=== PATIENT | female | born 1945 | race Caucasian/White ===

== ENCOUNTER 2020-11-08 17:14 | Outpatient (CLI) | payer MEDICARE, BC, SELFPAY ==
[2020-11-08 17:46] LABS: Hematocrit 32.5 % (37.0-47.0); Hemoglobin 10.4 g/dL (12.0-15.0); Immature Reticulocyte Fraction 15.5 % (3.0-15.9); Mean Corpuscular Hemoglobin 27.2 pg (26-34); Mean Corpuscular Volume 85.1 fl (80-100); Mean Platelet Volume 8.4 fl (7.4-10.4); Platelet Count Result 259 k/mm3 (150-375); Red Blood Count 3.82 M/mm3 (4.2-5.4); Red Cell Distribution Width 14.6 % (11.5-14.5); Reticulocyte Hemoglobin Conten 28.4 pg (28.2-35.7); Reticulocyte Percent 1.14 % (0.7-4.3); Reticulocytes Absolute 0.04 B/L (32.2-175.7); White Blood Count 5.1 K/mm3 (4.5-10.0)
[2020-11-08 20:25] LABS: Iron 25 ug/dL (37-170)
[2020-11-08 20:36] LABS: Percent Iron Saturation 6 % (20-50)
[2020-11-08 21:02] LABS: Ferritin 6.23 ng/mL (11.1-264)
[2020-11-08 21:43] LABS: Folic Acid > 20.0 ng/mL (2.76->20)
== END 2020-11-08 17:15 | disposition home or self-care (01) ==
PROVIDERS: Visit Provider Orthopaedic Surgery
DX: D64.9 Anemia, unspecified (principal)
CPT/HCPCS: 36415; 82607; 82728; 82746; 83540; 83550; 85027; 85046

== ENCOUNTER → 2022-11-14 12:43 | Outpatient (CLI) | payer MEDICARE, BC, SELFPAY ==
--- NOTE | ~2022-11-14 | US_ITS ---
EXAMINATION: US transvaginal DATE: 11/14/2022 13:21 INDICATION: Postmenopausal bleeding TECHNIQUE: Multiple endovaginal sonographic images of the pelvis were obtained. COMPARISON: None. FINDINGS: The uterus measures 4.8 x 2.4 x 3.6 cm. The endometrial complex measures 5 mm. There is a t race volume of fluid in the endometrial canal of unclear significance or etiology. The right ovary is not visualized however no right adnexal abnormality is seen. The left ovary measures 2.4 x 1.0 x 1.9 cm. There is a 1.3 x 1.0 cm cyst of the left ovary. There is normal vascular flow in the left ovary. There is no free fluid in the pelvis. IMPRESSION: 1. No sonographic correlate for the patient's symptoms. Trace volume of fluid in the endometrial jacky l of unclear significance or etiology. 2. 1.3 cm cyst of the left ovary. Follow-up ultrasound in 12 months is recommended. Reviewed, dictated and finalized at location F. IMPRESSION: 1. No sonographic correlate for the patient's symptoms. Trace volume of fluid i n the endometrial canal of unclear significance or etiology. 2. 1.3 cm cyst of the left ovary. Follow-up ultrasound in 12 months is recommen ded.
== END ==
PROVIDERS: PCP Physician Assistant; Visit Provider Nurse Practitioner
DX: N95.0 Postmenopausal bleeding (principal); N83.202 Unspecified ovarian cyst, left side
CPT/HCPCS: 76830

== ENCOUNTER 2023-01-29 00:35 | Day surgery (SDC) | payer MEDICARE, BC, SELFPAY ==
[2023-01-17 09:41] VITALS: BMI 33.1
--- NOTE | 2023-01-17 09:56 | PC.NURSE ---
Report to the Outpatient Waiting Room, entrance under the green pavilion located off [facility], at time _6:00AM on date __01/29/23 . Planned Procedure Time: ___7:30AM . Time changes happen often and if your time is changed the preop area will call you the afternoon before. - You and your visitor will be asked to self-screen and do not enter if you have any COVID symptoms. - A mask is optional within the hospital at this time. Patients may have clear liquids (water, carbonated beverages, clear teas, apple juice) until 3 hours prior to surgery with a maximum of 20 ounces. - No food from midnight until time of surgery Take the following medications with a SIP of water the morning of surgery: ___LEVOTHYROXINE, METOPROLOL DO NOT STOP ANY OF YOUR OTHER PRESCRIPTION MEDICATIONS PRIOR TO SURGERY ?EXCEPT THE FOLLOWING Medications to discontinue per physician ___HOLD ELIQUIS PER DR BUSTILLOS. HOLD ALL VITAMINS/SUPPLEMENTS 3 DAYS PRE-OP PER ANESTHESIA- LAST DOSE- 01/25/23 Please no make-up, nail serbian, hairspray, perfume, deodorant, or body powder the day of surgery. No jewelry (including any body piercings) or valuables the day of surgery, leave them at home. Please take a shower or bath the night before, or the morning of, surgery with an antibacterial soap. Wear comfortable, loose fitting clothing. Children are encouraged to wear pajamas. - Jewelry must be removed prior to entering the operating room. Rings and piercings that are not removed may be cut off. - The hospital will not accept responsibility for valuables. - Please leave all valuables, including medications, at home the day of surgery. If you are going home after surgery, a licensed driver lifter of sanitation truck must drive you home. - NO public transportation without another adult if you receive anesthesia. - We recommend that an adult stay with you for 24 hours following discharge. - We also recommend that you do not drive, make important decision, drink alcoholic beverages, or take any drugs that were not prescribed by your health care provider for at least 24 hours after your discharge time. Follow any additional instructions given to you from your surgeon. If you or anyone in your household have experienced Covid symptoms in the past week, please notify your surgeon or the nurse liaison at the phone number below for possible testing. Telephone instructions given to __PATIENT and asked if any additional questions and then verbalized understanding. Patient advised to call surgeon office or pre surgery nurse liaison [phone] if any additional questions.
[2023-01-29 06:29] VITALS: BP 140/76; PULSE 58; RESP 16; TEMP 36.2; O2SAT 100
[2023-01-29] MEDS: ACETAMINOPHEN 500 MG TABLET 1000 MG PO (06:44)
[2023-01-29] MEDS: LACTATED RINGERS 1,000 ML 30 ML IV CONT (06:53)
--- NOTE | 2023-01-29 06:59 | WPDANESEPPF ---
Anes - Initial Pre Proc Eval Procedure: Operation Date: 01/29/23 07:30 Proposed Procedures p Hysteroscopy, Dilation and Curettage - Robyn Brown MD Date/Time: 01/29/23 06:59 Surgeon: Robyn Brown MD Pre Op Diagnosis: post menopausal bleeding Patient Data Age: 77 Gender: F Height: 1.7 m Weight: 95.8 kg Last Vital Signs Temp 36.2 C L 01/29/23 06:29 Pulse 58 L 01/29/23 06:29 Resp 16 01/29/23 06:29 BP 140/76 01/29/23 06:29 Pulse Ox 100 01/29/23 06:29 O2 Del Method Room Air 01/29/23 06:29 Allergies Allergy/AdvReac Type Severity Reaction Status Date / Time SUNIL Inhibitors AdvReac Cough Verified 01/29/23 06:38 morphine AdvReac REFUSING, Verified 01/29/23 06:38 MOTHER- N/V Amcxgum-URA-AyM Reductase AdvReac Muscle Pain Verified 01/29/23 06:38 Inhibitor Home Medications Medication Instructions Recorded Confirmed Type alendronate 70 mg tablet 70 mg PO WEEKLY 01/17/23 01/17/23 History apixaban 5 mg tablet (Eliquis) 5 mg PO BID 01/17/23 01/29/23 History clotrimazole-betamethasone 1 1 applic topical BID PRN Itching 01/17/23 01/29/23 History %-0.05 % topical cream estradiol 10 mcg vaginal tablet 10 mcg vaginal 2XW 01/17/23 01/29/23 History ezetimibe 10 mg tablet 10 mg PO DAILY 01/17/23 01/29/23 History levothyroxine 150 mcg tablet 150 mcg PO QAM 01/17/23 01/29/23 History metoprolol tartrate 25 mg tablet 25 mg PO BID 01/17/23 01/29/23 History omega-3 acid ethyl esters 1 gram 2 cap PO BID 01/17/23 01/29/23 History capsule Patient hx anesthesia problems: none Family hx anesthesia problems: none Results Review: All pre-operative results and documents have been reviewed as part of the pre-operative evaluation. [facility] Past Medical History Medical History (Updated 01/29/23 @ 06:59 by Laron Oconnell MD) AAA (abdominal aortic aneurysm) Atrial fib/flutter, transient HTN (hypertension) Hyperlipidemia Surgical History Surgical History (Updated 01/29/23 @ 07:00 by Laron Oconnell MD) H/O cardiac radiofrequency ablation Social History Social History Smoking packs per day: 0.5 Smoking cigarettes per day: 10.0 Years smoked: 10 Smoking pack-years: 5.00 Smoking status: Former smoker Tobacco type: cigarettes Smoking end date: 02/10/85 Substance use: never Living arrangements: alone Spiritual care concerns: No Anes - Eval Final PreProcedure Day of Procedure 01/29/23 06:59 Patient weight: obese Heart: regular rate and rhythm Lungs: clear to auscultation Airway: Mallampati scale class II Neurological: alert and oriented Last oral intake: >/= 8 hours ASA classification: III Emergent: no Anesthetic plan: proceed Anesthesia type and monitoring: general GIVS and standard monitoring Results Review: All pre-operative results and documents have been reviewed as part of the pre-operative evaluation. Informed Consent: The patient's anesthetic plan and its attendant risks and benefits were discussed with the patient/family/POA. Questions were solicited and answers provided to the satisfaction of the patient/family/POA.
--- NOTE | 2023-01-29 07:21 | WPDHPUPDATE1 ---
History and Physical Update Update Date/Time: 01/29/23 07:21 History and Physical has been reviewed, including an updated exam of the patient. There are NO changes in the patient's condition. Risks, benefits, and alternatives have been discussed and questions answered. Patient agrees to proceed with procedure.
--- NOTE | 2023-01-29 07:21 | PM.HPGS ---
History of Present Illness History of Present Illness Consent: Risks, benefits, and alternatives have been discussed and questions answered. Patient agrees to proceed with procedure. Chief complaint: post menopausal bleeding Narrative: Pallavi Baird is a 77 year old female with several episodes of postmenopausal bleeding. Patient states she has had 3 episodes of bleeding since being seen. Pelvic ultrasound reveals the endometrium to be slightly thickened with a slight amount of fluid in the endometrial canal was recommended to proceed with D&C hysteroscopy. She does use a pessary however the vaginal wall appears normal without evidence abrasion or ulceration. Risk of infection, bleeding, perforation, and possible pathology is reviewed. Review of Systems Review of Systems: not repeated day of surgery; patient states no changes in status PMFSH Past Medical History Medical History (Updated 01/29/23 @ 07:27 by Robyn Brown MD) AAA (abdominal aortic aneurysm) Atrial fib/flutter, transient History of bladder cancer 2004 HTN (hypertension) Hyperlipidemia Hypothyroid (normal spontaneous vaginal delivery) x2 with hemorrhage each time Surgical History Surgical History (Updated 01/29/23 @ 07:25 by Robyn Brown MD) H/O cardiac radiofrequency ablation History of knee surgery bilateral arthroscope 2009 History of laparoscopic adjustable gastric banding 2007 Status post cystoscopy original in 2004 with ongoing surveillance Status post tubal ligation Social History Social History Smoking packs per day: 0.5 Smoking cigarettes per day: 10.0 Years smoked: 10 Smoking pack-years: 5.00 Smoking status: Former smoker Tobacco type: cigarettes Smoking end date: 02/10/85 Substance use: never Living arrangements: alone Spiritual care concerns: No Meds Home Medications and Allergies Home Medications Medication Instructions Recorded Confirmed Type alendronate 70 mg tablet 70 mg PO WEEKLY 01/17/23 01/17/23 History apixaban 5 mg tablet (Eliquis) 5 mg PO BID 01/17/23 01/29/23 History clotrimazole-betamethasone 1 1 applic topical BID PRN Itching 01/17/23 01/29/23 History %-0.05 % topical cream estradiol 10 mcg vaginal tablet 10 mcg vaginal 2XW 01/17/23 01/29/23 History ezetimibe 10 mg tablet 10 mg PO DAILY 01/17/23 01/29/23 History levothyroxine 150 mcg tablet 150 mcg PO QAM 01/17/23 01/29/23 History metoprolol tartrate 25 mg tablet 25 mg PO BID 01/17/23 01/29/23 History omega-3 acid ethyl esters 1 gram 2 cap PO BID 01/17/23 01/29/23 History capsule Allergies Allergy/AdvReac Type Severity Reaction Status Date / Time SUNIL Inhibitors AdvReac Cough Verified 01/29/23 06:38 morphine AdvReac REFUSING, Verified 01/29/23 06:38 MOTHER- N/V Rctjiuo-EHT-NuX Reductase AdvReac Muscle Pain Verified 01/29/23 06:38 Inhibitor Vital Signs Vital Signs - 24 hr 01/29/23 06:29 Temperature 97.2 F L Pulse Rate 58 L Respiratory Rate 16 Blood Pressure 140/76 Pulse Oximetry 100 Oxygen Delivery Room Air Exam Const: General: healthy appearing and alert Orientation/consciousness: patient oriented x3 Resp: Effort & Inspection: normal respiratory effort GI: GI Palp: Yes Soft to palpation, No Tenderness to palpation present (GI) and No Palpable mass present : External Female Exam: normal external appearance Speculum Exam - Vagina: normal vaginal discharge and other ( Cystocele and rectocele) Speculum Exam - Cervix: normal appearance of the cervix Bimanual exam- vagina & uterus: uterine size normal and consistency normal Bimanual Exam- Adnexa, other: normal adnexae and No adnexal tenderness Neuro: General: patient oriented x3 Assessment and Plan Assessment and plan (1) Post-menopausal bleeding: Code(s): N95.0 - Postmenopausal bleeding Status: Acute Assessment and
[2023-01-29] MEDS: LIDOCAINE HCL 1% LOCAL INJ 10 ML VIAL INFILTRATE (07:33)
--- NOTE | 2023-01-29 07:57 | W.PM.PROC2 ---
Procedure Note - Detailed Date of Procedure 01/29/23 Pre-op Diagnosis post menopausal bleeding Post-op Diagnosis Same Procedure Performed D&C hysteroscopy Surgeon Robyn Brown MD Anesthesia MAC and Local Findings cystocele with rectocele; internal cervical stenosis; very atrophic endometrium Description of Procedure The patient is taken to the operating room and placed under anesthesia in the dorsal lithotomy position. She was prepped and draped usual sterile fashion. Patient's pessary is removed and cleaned and set aside. [place] speculum was placed in the vagina and the cervix grasped on the anterior lip with a tenaculum. The cervix is injected in each quadrant with 1% lidocaine. The sound is used and internal stenosis is noted at approximately 2cm. The os Finders are used and are unable to pass the stenosis. The camera is used in an attempt to hydro dissect and the os is visible but very scarred. The os Finders are then used and able to pass the internal stenosis. The uterus sounds to 7cm. The hysteroscope was then used to evaluate the endometrium with the above-stated findings. The hysteroscope was removed and the sharp curette used to curette the endometrium. Minimal if any material was obtained consistent with the severe atrophy of the endometrium. All instruments are removed. The pessary is replaced. The patient is awakened from anesthesia and taken to recovery in stable condition. Sponge, needle, and instrument counts are correct per the OR staff. Estimated Blood Loss 5 Drains No Packing No Pathology Yes ( Endometrial curettings) Complications No immediate complications Condition Stable Disposition PACU
[2023-01-29 08:00] VITALS: BP 95/55; PULSE 52; RESP 16; O2SAT 97
[2023-01-29 08:30] VITALS: BP 118/71; PULSE 53; RESP 16; O2SAT 100
[2023-01-29 08:50] VITALS: BP 125/65; PULSE 51; RESP 14
== END 2023-01-29 08:58 | disposition home or self-care (01) ==
PROVIDERS: PCP Physician Assistant; Visit Provider Obstetrics & Gynecology Gynecology
PROC: 0U5B8ZZ Destruction of Endometrium, Via Natural or Artificial Opening Endoscopic (ICD-10-PCS; CPT 58563; principal; 2023-01-29 07:30)
DX: N95.0 Postmenopausal bleeding (principal); N81.10 Cystocele, unspecified; N81.6 Rectocele; I48.0 Paroxysmal atrial fibrillation; I10 Essential (primary) hypertension; E78.5 Hyperlipidemia, unspecified; I71.40 Abdominal aortic aneurysm, without rupture, unspecified; Z87.891 Personal history of nicotine dependence; E66.9 Obesity, unspecified; Z68.33 Body mass index [BMI] 33.0-33.9, adult; Z79.01 Long term (current) use of anticoagulants
CPT/HCPCS: 58558; 88305; A9270; J2704; J3010; J7120

== ENCOUNTER 2025-01-13 09:34 | Outpatient (CLI) | payer MEDICARE, BC, SELFPAY ==
--- OUTSIDE RECORDS SUMMARY | 2025-01-13 09:53 | XMS_ITS ---
Author Organization [facility] [address] [place] [address] Care Team Providers [facility] [place] Worker Name Role Phone Edward Elkins MD Unavailable [phone] Elva Rush MD Unavailable Zeenat Emanuel Primary Care Provider [phone] Robyn Brown MD Unavailable [phone] Active Problems Problem Noted Date Diagnosed Date Elevated glucose 11/05/2023 Overview (11/05/2023): Diet controlled, check labs Assessment & Plan (11/05/2024 8:16 AM CDT): Diet controlled. A1c 5.9 Abdominal aortic aneurysm (AAA) without rupture 05/19/2021 Assessment & Plan (11/05/2024 8:16 AM CDT): Monitor by Cardiology Assessment & Plan (11/05/2023 8:01 AM CDT): Stable, followed by Cardiology Assessment & Plan (10/28/2021 8:40 AM CDT): Stable, followed by vascular Osteoarthritis of hip 01/31/2021 Assessment & Plan (01/07/2025 9:38 AM CDT): Anticipating hip replacement surgery Assessment & Plan (11/05/2023 8:01 AM CDT): Stable, followed by Ortho Assessment & Plan (10/28/2021 8:41 AM CDT): Stable, continue exercise Anemia 11/11/2020 Assessment & Plan (11/05/2023 8:01 AM CDT): Stable, check CBC Assessment & Plan (10/28/2021 8:40 AM CDT): Resolved. Will monitor with labs. Patient has stop iron supplement Statin intolerance 10/27/2020 Assessment & Plan (11/05/2024 8:16 AM CDT): Unchanged Obstructive sleep apnea derrick bobby with continuous positive airway pressure (CPAP) 10/07/2020 Assessment & Plan (11/05/2024 8:16 AM CDT): Stable, continue CPAP Assessment & Plan (02/12/2024 1:22 PM CDT): Patient continue to wear her CPAP at 10 cm water pressure while sleeping. Her DME is [employer]. Assessment & Plan (11/08/2023 2:24 PM CDT): Data continued symptoms, the patient will continue CPAP at 10 cm water pressure. I have ordered the patient a new CPAP set at 10 cm water pressure with heated humidity and a full set of supplies. The patient and I discussed the possible need for recertification was a sleep study. The patient will decide at the time if that is something she would like to proceed with. She says she would prefer an in-home. DME [employer] Assessment & Plan (11/05/2023 8:01 AM CDT): Jayesh, followed by Pulmonary Assessment & Plan (11/02/2022 1:44 PM CDT): Patient will continue with CPAP therapy at 10 cm water pressure. She will call into the office if she would like a new CPAP machine ordered. DME [employer]. I also showed the patient oral appliances that she may use while on vacation. Assessment & Plan (10/28/2021 8:41 AM CDT): Stable, continue CPAP, followed by Pulmonary Assessment & Plan (10/27/2021 2:24 PM CDT): Due to the slightly elevated AHI I have increased the pressure to 10 cm water pressure. Patient denied need for supplies. DME [employer]. Patient is benefitting from CPAP Assessment & Plan (10/27/2020 8:34 AM CDT): Stable continue CPAP Assessment & Plan (10/07/2020 1:26 PM HAND STITCHER): The patient will continue with CPAP usage at 8 cm water pressure to treat obstructive sleep apnea. The patient did receive an order for all new supplies. The DME company is [facility]. The patient is benefitting from CPAP therapy. Dyslipidemia 04/26/2020 Assessment & Plan (11/05/2024 8:16 AM CDT): Uncontrolled. Patient has a statin intolerance. Patient is going to discontinue Zetia. We are going to look into the coverage of Repatha Assessment & Plan (11/05/2023 8:01 AM CDT): Followed by Cardiology, patient on Zetia. Statin intolerance Assessment & Plan (10/28/2021 8:41 AM CDT): Uncontrolled. Statin intolerance. Patient will continue Zetia. Followed by Cardiology Assessment & Plan (10/27/2020 8:34 AM CDT): Uncontrolled. Patient is intolerant to statins. Continue Zetia and Lovaza. Continue exercise Former tobacco use 12/25/2019 Assessment & Plan (10/27/2020 8:36 AM CDT): Discussed with patient screening guidelines. Patient will consider testing Pessary maintenance 10/24/2019 Assessment & Plan (11/05/2023 8:00 AM CDT): Followed by gynecology Assessment & Plan (10/28/2021 8:42 AM CDT): Followed by gynecology Assessment & Plan (10/27/2020 8:35 AM CDT): Followed by gynecology Assessment & Plan (10/24/2019 10:36 AM CDT): Followed by [employer] Class 2 severe obesity due t o excess calories with serious comorbidity and body mass index (BMI) of 36.0 to 36.9 in adult 10/24/2019 Assessment & Plan (01/07/2025 9:38 AM CDT): Educated patient on healthy diet/exercise plan. Exercise 150min-300min per week of moderate intensity. Diet: good, healthy protein (eggs, nuts, peanut butter, chicken, fish, turkey, less pork/beef), lots of vegetables, less carbohydrates and less sugar. Assessment & Plan (11/05/2024 8:16 AM CDT): Educated patient on healthy diet/exercise plan. Exercise 150min-300min per week of moderate intensity. Diet: good, healthy protein (eggs, nuts, peanut butter, chicken, fish, turkey, less pork/beef), lots of vegetables, less carbohydrates and less sugar. Assessment & Plan (11/05/2023 8:00 AM CDT): Educated patient on healthy diet/exercise plan. Exercise 150min-300min per week of moderate intensity. Diet: good, healthy protein (eggs, nuts, peanut butter, chicken, fish, turkey, less pork/beef), lots of vegetables, less carbohydrates and less sugar. Assessment & Plan (10/28/2021 8:41 AM CDT): Uncontrolled. Goal of BMI is less than 30 Educated patient on healthy diet/exercise plan. Exercise 150min-300min per week of moderate intensity. Diet: good, healthy protein (eggs, nuts, peanut butter, chicken, fish, turkey, less pork/beef), lots of vegetables, less carbohydrates and less sugar. Assessment & Plan (10/27/2020 8:34 AM CDT): Educated patient on healthy diet/exercise plan. Exercise 150min-300min per week of moderate intensity. Diet: good, healthy protein (eggs, nuts, peanut butter, chicken, fish, turkey, less pork/beef), lots of vegetables, less carbohydrates and less sugar. Assessment & Plan (04/26/2020 8:59 AM CDT): BMI is okay. Normal range is 18-25 and overweight is 25-30. Continue to work on eating healthy and exercising at least 150 minutes per week. Assessment & Plan (10/24/2019 10:35 AM CDT): Educated patient on healthy diet/exercise plan. Exercise 150min-300min per week of moderate intensity. Diet: good, healthy protein (eggs, nuts, peanut butter, chicken, fish, turkey, less pork/beef), lots of vegetables, less carbohydrates and less sugar. Medicare annual wellness visit, subsequent 10/06 Overview (11/21/2024): PMH:/MWV: 11/05/24 Last pap:09/2012 Last mammogram:11/2024 Last dexa: upcoming 09/2025 Last colonoscopy/cologuard: 08/27/2020 repeat in 2025 Last tdap: 01/23/2020 Last Prevnar/pneumovax: 10/2023 prevnar 20 Last Shingrix:completed Last eye exam: 10/2021 Assessment & Plan (11/05/2024 8:16 AM CDT): PMH:/MWV: 11/05/24 Last pap:09/2012 Last mammogram:10/09/23 Last dexa: upcoming 09/2025 Last colonoscopy/cologuard: 08/27/2020 repeat in 2025 Last tdap: 01/23/2020 Last Prevnar/pneumovax: 10/2023 prevnar 20 Last Shingrix:completed Last eye exam: 10/2021 Assessment & Plan (11/05/2023 7:41 AM CDT): PMH:/MWV: 11/05/23 Last pap:09/2012 Last mammogram:10/09/23 Last dexa: 06/2023 Last colonoscopy/cologuard: 08/27/2020 repeat in 2025 Last tdap: 01/23/2020 Last Prevnar/pneumovax: (13) 10/23/14 (23) 08/20/2009 Last Shingrix:completed Last eye exam: 10/2021 Assessment & Plan (10/28/2021 8:11 AM CDT): PMH:/MWV: 10/28/21 Last pap:09/2012 Last mammogram:10/2017, 11/20/2018, 12/2019, 04/2021 Last dexa:10/2017, 01/2020, 05/2021 Last colonoscopy/cologuard: 08/27/2020 repeat in 2025 Last tdap: 01/21/2009, 01/23/2020 Last Prevnar/pneumovax: (13) 10/23/14 (23) 08/20/2009 Last Shingrix:completed Last eye exam:09/2018, 09/2019, 10/2021 Assessment & Plan (10/27/2020 7:52 AM CDT): PMH:/MWV: 10/25/2020 Last pap:09/2012 Last mammogram:10/2017, 11/20/2018, 12/2019 Last dexa:10/2017, 01/2020, Last colonoscopy/cologuard: 08/27/2020 repeat in 2025 Last tdap: 01/21/2009, 01/23/2020 Last Prevnar/pneumovax: (13) 10/23/14 (23) 08/20/2009 Last Shingrix:completed Last eye exam:09/2018, 09/2019 Assessment & Plan (10/24/2019 8:15 AM CDT): PMH:/MWV: 10/24/2019 Last pap:09/2012 Last mammogram:10/2017, 11/20/2018 (scheduled November) Last dexa:10/2017 (scheduled November) Last colonoscopy/cologuard: 2019 attempted, barium was negative, repeat in 1 year. Last tdap: 01/21/2009, get at pharmacy Last Prevnar/pneumovax: (13) 10/23/14 (23) 08/20/2009 Last Shingrix:completed Last eye exam:09/2018, 09/2019 Hx of bladder cancer 10/16/2018 Assessment & Plan (11/05/2023 8:00 AM CDT): Patient reports recent workup from Urology was negative Assessment & Plan (10/28/2021 8:41 AM CDT): Followed by urology yearly Assessment & Plan (10/27/2020 8:34 AM CDT): Stable, no issues Osteoarthritis of shoulder 05/29/2017 Assessment & Plan (11/05/2023 7:59 AM CDT): Stable, followed by specialist Assessment & Plan (10/28/2021 8:41 AM CDT): Stable, continue exercise Assessment & Plan (10/27/2020 8:34 AM CDT): Stable, taking Mobic Assessment & Plan (10/24/2019 10:35 AM CDT): stable Benign essential hypertension 11/06/2016 Assessment & Plan (11/05/2024 8:16 AM CDT): Chronic, stable, continue metoprolol Assessment & Plan (11/05/2023 7:59 AM CDT): Stable, continue current meds Assessment & Plan (10/28/2021 8:40 AM CDT): Stable, continue metoprolol Assessment & Plan (10/27/2020 8:34 AM CDT): Stable continue meds Assessment & Plan (10/24/2019 8:44 AM CDT): Stable on meds Vitamin D deficiency 10/18/2016 Assessment & Plan (11/05/2023 8:00 AM CDT): Stable, continue vitamins, order labs Assessment & Plan (10/28/2021 8:42 AM CDT): Stable, continue vitamin-D Assessment & Plan (10/27/2020 8:35 AM CDT): Stable, continue vitamin-D, check labs Assessment & Plan (10/24/2019 10:36 AM CDT): Stable, continue vit d Age related osteoporosis 10/25/2015 Overview (10/28/2021): Fosamax in past. [facility]. Assessment & Plan (11/05/2024 8:16 AM CDT): Chronic, stable, continue Fosamax. DEXA due next year Assessment & Plan (11/05/2023 7:59 AM CDT): Stable, patient taking Fosamax Assessment & Plan (10/28/2021 8:40 AM CDT): Stable, followed by [facility]. Patient will continue calcium, vitamin- D, and exercise Assessment & Plan (10/27/2020 8:33 AM CDT): Followed by [facility]. Patient is taking calcium and vitamin-D. Patient has a follow-up with them in December Assessment & Plan (10/24/2019 8:41 AM CDT): Continue meds, Pt has dexa scheduled in November Other specified hypothyroidism 10/25/2015 Assessment & Plan (11/05/2024 8:16 AM CDT): Uncontrolled. Synthroid was just increased to 137 mcg. Patient will repeat labs in a few weeks. Assessment & Plan (11/05/2023 8:00 AM CDT): Stable, continue current meds . order labs Assessment & Plan (10/28/2021 8:41 AM CDT): Stable, continue Synthroid Assessment & Plan (10/27/2020 8:34 AM CDT): Stable, check labs, continue meds Assessment & Plan (10/24/2019 10:36 AM CDT): Stable, labs due 04/2020 Paroxysmal atrial fibrillation 10/25/2015 Overview (10/27/2021): Last Assessment & Plan: Stable, followed by Cardiology, continue aspirin daily Assessment & Plan (01/07/2025 9:38 AM CDT): Chronic, stable, medically cleared for surgery per Cardiology Assessment & Plan (11/05/2024 8:16 AM CDT): Chronic, stable, patient will continue Eliquis Assessment & Plan (11/05/2023 8:01 AM CDT): Post ablation, patient doing well, followed by Cardiology Assessment & Plan (10/28/2021 8:41 AM CDT): Stable, followed by Cardiology patient will continue aspirin daily Current Treatment and Therapy Plans No current plan information found. Past Treatment and Therapy Plans No past plan information found. Lifetime Dose Tracking * Chemical Lifetime Dose Automatic Entry Manual Entr y Fluoro Time 3.7 minutes 3.7 minutes 0 minutes Air kerma at the reference point (Ka,r) 180.2 mGy 1 80.2 mGy 0 mGy Resolved Problems Problem Noted Date Diagnosed Date Resolved Date Elevated TSH 09/02/2021 10/28/2021 Hypertension 11/11/2020 10/28/2021 CPAP (continuous positive ai rway pressure) dependence 10/27/2020 10/28/2021 Abnormal ECG 12/25/2019 10/28/2021 Impaired hearing 10/15/2017 10/24/2019 Senile angioma 03/28/2017 10/06/2019 Atrial fibrillation 10/25/2015 10/29/19 22 Assessment & Plan (10/27/2020 8:34 AM CDT): Stable, followed by Cardiology, continue aspirin daily Assessment & Plan (10/24/2019 10:36 AM CDT): Stable, followed by cardiology Regular today, not on blood thinners except asa Malignant neoplasm of urinary bladder 10/25/2015 10/06/2019 Mixed hyperlipidemia 10/25/2015 021 Assessment & Plan (10/24/2019 10:35 AM CDT): Followed by cardiology Sebaceous gland hyperplasia 12/18/2014 10/06/2019 Senile lentigo 12/18/2014 10/06/2019 Benign neoplasm of skin 11/27/201309/14 Lentigo 11/27/2013 10/06/2019 Arthralgia of shoulder 08/29/201310/06 Capillary hemangioma of skin 11/27/2012 10/06/2019 Seborrheic keratoses 03/06/2011 020
--- OUTSIDE RECORDS SUMMARY | 2025-01-13 09:53 | XMS_ITS | Referral Summary ---
Author Organization [facility] 2 Address [address] [facility] [place] [address] Care Team Providers Care Diet Kitchen Cook Name Role Phone Edward Elkins MD Unavailable [phone] Elva Rush MD Unavailable Zeenat Emanuel Primary Care Provider [phone] Robyn Brown MD Unavailable [phone] Encounters Date Type Department Care Team Description 01/12/[address] [address] Zeenat Emanuel PA Medical Records Request 01/07/2025 8:30 AM CDT Office Visit [address] [phone] Zeenat Emanuel PA Pre-operative clearance (Primary Dx); Screening mammogram for breast cancer; Primary osteoarthritis of both hips; Paroxysmal atrial fibrillation (HCC); Class 2 severe obesity due to excess calories with serious comorbidity and body mass index (BMI) of 36.0 to 36.9 in adult (HCC) 12/25/[address] [address] Zeenat Emanuel PA Surgery Clearance Form 12/08/2024 Results Follow-Up [address] [address] Zeenat Emanuel PA Thyroid Function [place] 12/08/2024 9:25 AM CDT Lab [facility] [address] [place] [id number] Other specified hypothyroidism 11/21/2024 Results Follow-Up [address] [address] Zeenat Emanuel PA Screening Mammogram Bilateral W Armen 11/20/2024 3:25 PM CDT - 11/20/2024 11:59 PM CDT Hospital Encounter [facility] Medical Office Bl [address] [place] [address] Screening mammogram, encounter for Discharge Disposition: Discharge to home or self care 11/05/2024 7:30 AM CDT Office Visit [address] [phone] Zeenat Emanuel PA Medicare annual wellness visit, subsequent (Primary Dx); Paroxysmal atrial fibrillation (HCC); Class 2 severe obesity due to excess calories with serious comorbidity and body mass index (BMI) of 35.0 to 35.9 in adult (HCC); Benign essential hypertension; Age-related osteoporosis without current pathological fracture; Other specified hypothyroidism; Dyslipidemia; Elevated glucose; Obstructive sleep apnea treated with continuous positive airway pressure (CPAP); Statin intolerance; Abdominal aortic aneurysm (AAA) without rupture, unspecified part 11/03/2024 1:00 PM CDT Office Visit [facility]ally In[facility] [address] [place] [address] Gaston Bonilla NP Bariatric surgery status (Primary Dx); Encounter for fitting and adjustment of gastric lap band; BMI 34.0-34.9,adult 10/27/2024 Telephone [place] [address] [place] [address] Zeenat Emanuel PA recent visit to Ortho 10/21/2024 Orders Only [facility] Neurosurgery [address] [facility] Medical Office Building [address] [place] [address] Brian Shannon PA Closed fracture of hip, unspecified laterality, initial encounter (HCC) (Primary Dx) 10/14/2024 Letter (Out) [facility] [address] [address] 10/13/2024 Letter (Out) [address] [address] from Last 3 Months Allergies Active Allergy Reactions Criticality Noted Date Comments Prosper Inhibitors Other (See comments) Reaction: SEE ALLERGY COMMENTS, Atorvastatin Muscle pain Medium 01/21/2016 Morphine Other (See comments) Low 07/09/2023 Niacin Redness Low 10/18/2004 Pravastatin Muscle pain Medium 01/21/2016 Rosuvastatin Muscle pain Medium 01/21/2016 Wndasgm-Pvm-Bkb Reductase Inhibitors Muscle pain Medium 11/05/2023 Fluocinolone Unknown Medications metoprolol (LOPRESSOR) 25 mg tablet Take 1 tablet (25 mg total) by mouth daily 05/03/20 19 Active omega-3 fatty acids (LOVAZA) 1 gram capsule 2 (two) times a day 2 tablets Active lutein 10 mg tablet Rx: Lutein Active estradioL (VAGIFEM) 10 mcg tablet 2 (two) times a week Active cholecalciferol (VITAMIN D-3) 25 mcg (1,000 unit) tablet Take 1 tablet (1,000 Units total) by mouth every other day weekly Active Eliquis 5 mg tablet 01/21/20 24 Active ferrous sulfate (IRON ORAL) Take 29 mg by mouth Active Lactobacillus acidophilus (PROBIOTIC ORAL) Take by mouth Active ZINC ORAL Take 20 mg by mouth Active MAGNESIUM ORAL Take 250 mg by mouth Active alendronate (FOSAMAX) 70 mg tablet Take 1 tablet (70 mg total) by mouth every 7 days Take in the morning with a full glass of water, on an empty stomach, and do not take anything else by mouth or lie down for the next 30 min. 12 tablet 3 09/08/19 25 026 Active levothyroxine (SYNTHROID) 137 mcg tablet Take 1 tablet (137 mcg total) by mouth retail security professional before breakfast 90 tablet 3 10/10/19 25 026 Active amoxicillin 500 mg tablet/capsule TAKE 4 TABLETS BY MOUTH ONE HOUR PRIOR TO APPOINTMENT 10/07/19 Active metoprolol XL (TOPROL-XL) 25 mg extended release tablet TAKE 1/2 TABLET EVERY EVENING 11/16/19 25 025 Discontinued Active Problems Problem Noted Date Diagnosed Date [...] water pressure while sleeping. Her DME is nola. Assessment & Plan (11/08/2023 2:24 PM CDT): [...] (11/05/2023 8:01 AM CDT): Stable, followed by Pulmonary Assessment & Plan (11/02/2022 [...] CPAP Assessment & Plan (10/07/2020 1:26 PM BLASTER HELPER): The patient will continue with CPAP usage [...] Plan (10/24/2019 10:36 AM CDT): Followed by shipping specialist Class 2 severe obesity due t o [...] Overview (10/28/2021): Fosamax in past. Stopped by [facility]. Assessment & Plan (11/05/2024 8:16 AM CDT): Chronic, stable, continue Fosamax. DEXA due next year Assessment & Plan (11/05/2023 7:59 AM CDT): Stable, patient taking Fosamax Assessment & Plan (10/28/2021 8:40 AM CDT): Jayesh, followed by [facility]. Patient will continue calcium, vitamin- D, and exercise Assessment & Plan (10/27/2020 8:33 AM CDT): Followed by [facility]. Patient is taking calcium and vitamin-D. Patient [...] by Cardiology patient will continue aspirin daily Resolved Problems Problem Noted Date Diagnosed Date [...] skin 11/27/2012 10/06/2019 Seborrheic keratoses 03/06/2011 020 Immunizations Immunization Administration Dates Next Due DTP 09/13/2013 Hep A, Adult 09/13/1999 Hep A, Pediatric 04/13/2014 Influenza, Quad, Adjuvantate d, Intramuscular 04/09/2023,05/02/2021 Influenza, Quadrivalent, Hig h Dose, Preservative Free, Intrr 04/18/2022 Influenza, Quadrivalent, Spl it, Preservative Free, Intramuscular 05/13/2021,05/02/2021 Influenza, Trivalent, High D ose, Split, Preservative Free, Intramuscular 04/17/2024,04/26/2020,05/05/2019,05/03,05/01/2017,05/13/2015,04/13/2014 Influenza, Unspecified 05/13/2022,2020,05/07/2020,05/05,05/03/2018,05/01/2017,05/13/2015 ,04/13/2014,05/06/2011,06/03/2010,12/2008 Moderna SARS-CoV-2 Monovalen t Vaccination (12+ YRS) 10/06/2020,09/09/2020 Pneumococcal Conjugate PCV 13 10/23/2014 Pneumococcal Conjugate Pcv20 11/05/2023 Pneumococcal Conjugate, Unspecified 10/11/2014,1 08/13/2013 Pneumococcal Polysaccharide PPV23 06/20/2010,03/2010 Pneumococcal, Unspecified 10/11/2014 TD Preservative Free 01/21/2009 Td, adsorbed 01/28/1999 Tdap 01/23/2020,06/09/2009,01/21/2009 Yellow Fever 09/13/2013 ZOSTER LIVE 02/10/2009 ZOSTER Recombinant 07/18/2018,07/18/2018, 018 Social History Tobacco Use Types Packs/Day Years Used Date Smoking Tobacco: Former Cigarettes 0.8 25 1 970 - 1994 Smokeless Tobacco: Never Tobacco Cessation:Counseling Given: Not Answered Alcohol Use Standard Drinks/Week Comments Not Currently 0 (1 standard drink = 0.6 oz pur e alcohol) AUDIT-C Answer Date Recorded Q1: How often do you have a drink containing alcohol? Never 01/07/2025 Q2: How many drinks containi ng alcohol do you have on a typical day when you are drinking? Patient does not drink Q3: How often do you have si x or more drinks on one occasion? Never 01/07/2025 PHQ-2 Answer Date Recorded PHQ-2 Total Score (If total score is 3 or more points, staff should administer the PHQ-9) 0 01/07/2025 PHQ-9 Answer Date Recorded PHQ-9 Total Score 0 10/29/2024 Comments No Sex and Gender Information Value Date Recorded Sex Assigned at Not on file Legal Sex Female 7:50 PM BLASTER HELPER Gender Identity Female 04/04/2019 12:49 PM CDT Sexual Orientation Not on file Last Filed Vital Signs Vital Sign Reading Time Taken Comments Blood Pressure 128/70 01/07/2025 8:02 AM CDT Pulse 68 01/07/2025 8:02 AM CDT Temperature 36.5 C (97.7 F) 01/07/2025 8:02 AM CDT Respiratory Rate 16 01/07/2025 8:02 AM CDT Oxygen Saturation 95% 01/07/2025 8:02 AM CDT Inhaled Oxygen Concentration - - Weight 103.5 kg (228 lb 3.2 oz) 01/07/2025 8:02 AM CDT Height 168.9 cm (5' 6.5) 01/07/2025 8 :02 AM CDT Body Mass Index 36.29 01/07/2025 8:02 AM CDT Plan of Treatment Not on file Procedures Procedure Name Priority Date/Time Associated Diagnosis Comments ECG 12-LEAD Routine 01/07/2025 8:30 AM CDT Pre-operative clearance THYROID FUNCTION CASCADE Routine 12/08/2024 9:38 AM CDT Other specified hypothyroidism SCREENING MAMMOGRAM BILATERAL W ARMEN Schedule Routine, Read Routine (OP Routine) 11/20/2024 3:36 PM CDT Screening mammogram, encounter for DEXA TBS AXIAL SKELETON BONE DENSITY 1 OR MORE SITES Schedule Routine, Read Routine (OP Routine) 09/08/2024 12:25 PM BLASTER HELPER Age-related osteoporosis without current pathological fracture HM COLONOSCOPY Routine 08/13/2019 from Last 3 Months or Most Recently Relevant to Health Maintenance Results * ECG 12 lead (01/07/2025 8:30 AM CDT) us Zeenat CALLAHAN ECG ORDERABLES Final Result * Thyroid Function [place] (12/08/2024 9:38 AM CDT) TSH 4.20 0.30 - 4.20 mcIUnit/mL Comment:Testing performed by : [facility], [address] [place] [address]., [id number] Blood 12/08/2024 9:38 AM CDT 12/08/2024 11:59 AM CDT us Zeenat CALLAHAN LAB BLOOD ORDERABLES Final Res ult [facility] [address] [facility] [place] [address] * Screening Mammogram Bilateral W Armen (11/20/2024 3:36 PM CDT) Anatomical Region Laterality Modality Breast Bilateral Mammography Impressions 11/20/2024 3:42 PM CDT BI-RADS ATLAS category (overall): 1 - Negative There is no mammographic evidence of malignancy. A 1 year screening mammogram is recommended. The patient has been or will be contacted. We recommend annual screening mammography for women at average risk of breast cancer beginning at age 40, based on guidelines of the [employer] (ACR Practice Parameter for the Performance of Screening and Diagnostic Mammography) and [place] [employer]. For women with and elevated risk of breast cancer, please refer to the ACR Practice Parameter for specific screening recommendations. The patient will be entered into a reminder system with a target due date of 1 year for her next screening exam. Narrative 11/20/2024 3:42 PM CDT Screening Mammogram Bilateral W Armen: 11/20/24 The study was acquired using full field digital technology and interpreted from soft copy. 2D digital mammographic views, as well as 3D digital tomosynthesis were performed in the CC and MLO projections. This study was resulted using Computer-Aided Detection (CAD). CLINICAL: Screening mammogram, encounter for. No relevant medical history has been documented for this patient. History of breast cancer in Mother, Sister. COMPARISONS: 10/09/2023 Screening Mammogram Bilateral W Armen 08/15/2022 Screening Mammogram Bilateral W Armen 05/09/2021 Screening Mammogram Bilateral W Armen 01/08/2020 Screening Mammogram Bilateral W Armen BREAST TISSUE: There are scattered areas of fibroglandular density. FINDINGS: No suspicious masses, suspicious calcifications, or other suspicious findings are seen within either breast. There has been no suspicious change. us Self Screening Mammogram IMG MAMMO PROCEDURES Fi nal Result * Dexa TBS Axial Skeleton Bone Density 1 or more sites (09/08/2024 12:25 PM BLASTER HELPER) Anatomical Region Laterality Modality Wrist, Body N/A Radiographic Pratima ging Narrative 09/08/2024 4:09 PM BLASTER HELPER Patient Name: Pallavi Baird Date of : 1945 Date of scan: 09/08/2024 Bone mineral density was performed on a HoloLeostream Discovery Densitometer. Based on machine cross-calibration and precision studies the least significant changes of this densitometer is 0.024 g/cm2 at the spine, 0.020 g/cm2 at the total proximal femur, and 0.014g/cm2 at the forearm. HISTORY: This is a 79 y.o. postmenopausal female with a history of osteoporosis, thyroid disease, and vitamin D deficiency. She reports that she quit smoking about 30 years ago. Her smoking use included cigarettes. She started smoking about 55 years ago. She has a 18.8 pack-year smoking history. She has never used smokeless tobacco. Currently on treatment with vitamin D, alendronate (Fosamax), anticoagulants, and thyroid hormone. INDICATIONS: Menopause status, treatment monitoring, vitamin D deficiency, and history of osteoporosis. FINDINGS: BONE MINERAL DENSITY OF THE LUMBAR SPINE Bone Mineral Density (BMD) of the lumbar spine was measured from L1 and L4 and the average density was calculated to be 0.895 gm/cm2. This corresponds to a T-score (standard deviations from the mean of young adults) of -1.3. When compared to the previous study of 07/09/2023 there has been a -0.097 gm/cm (-9.8%) decrease in bone density that is considered significant. BONE MINERAL DENSITY OF THE PROXIMAL FEMUR Bone Mineral Density (BMD) of the right hip total was found to be 0.924 gm/cm2. This corresponds to a T-score standard deviations from the mean of young adults of -0.1. Femoral neck is 0.928 gm/cm2 with a T-score (standard deviations from the mean of young adults) of 0.7. When compared to the previous study of 07/09/2023 there has been a 0.032 gm/cm (3.6%) increase in bone density that is considered significant. BONE MINERAL DENSITY OF THE FOREARM Bone Mineral density (BMD) of the left proximal 1/3 of the radius measures 0.416 gm/cm2. This corresponds to a T-score (standard deviations from the mean of young adults) of -4.6. When compared to the previous study of 07/09/2023 there has been no significant changes in bone density. A forearm bone density study was performed in addition to the routine study due to an internal artifact that cannot be removed in the scan of the lumbar spine. SUMMARY: Bone mineral density shows evidence of osteoporosis and marked increase risk of fracture. There is a significant decrease noted in the spine and a significant increase noted in the hip since the previous exam. The lumbar spine Trabecular Bone Score is 1.377 which suggests normal bone microarchitecture, compared to the general population. Final decisions regarding diagnostic or therapeutic recommendations should include BMD, TBS, additional clinical risk factors as well the clinical context of the patient. Please see attached TBS results for further details. ADDITIONAL COMMENTS: Postmenopausal Women and Men Over 50: Diagnostic criteria: Osteoporosis: BMD at or below -2.5 T-score; Osteopenia (low bone mass): BMD between -1.0 and -2.5 T-score. If the patient has a history of a fragility fracture, a fracture that occurred with trauma equivalent to a fall from a standing position or less, then the diagnosis is osteoporosis regardless of bone density. The history and data sections of the bone mineral density scan were prepared by Berta Santiago) LARON who is accredited by the International Society of Clinical Densitometry. The overall patient assessment and scan interpretation were performed by Billy Villarreal M.D. who is certified by the International Society of Clinical Densitometry. [id number] Jacey Hawley MD IMG DXA PROCEDURES Final Result * COLONOSCOPY (08/13/2019) [facility] Colonoscopy Unknown Historical Provider HEALTH MAINTENANCE Final Result from Last 3 Months or Most Recently Relevant to Health Maintenance Additional Health Concerns Infection Onset Date Last Indicated COVID19 Comment:07/01/20 08/27/2020 08/26/2020 Insurance MEDICARE [facility] MEDICARE [id number] FEDERAL Advance Directives For more information, please contact: [phone] Documents on File Type Date Recorded Patient Senior Strategy Analyst Expl anation ADVANCE DIRECTIVE 10/27/2020 8:13 AM Power of Headliner Installer-Medical Care Teams Diet Kitchen Cook Relationship Specialty Start Date End Date Zeenat Emanuel PA [address] [place] [address] PCP - General Family Medicine 03/08/20 Edward Elkins MD [address] [place] [address] Consulting Physician Family Medicine 03/17/19 [place] [address] [place] [address] [phone] Referring Physician General Surgery 10/24/19 Robyn Brown MD [address] [address] Referring Physician Gynecology 03/08/20
--- OUTSIDE RECORDS SUMMARY | 2025-01-13 09:53 | XMS_ITS | Clinical Summary ---
Author Organization [facility] [address] [facility] AUR[place] Schmid [address] Care Team Providers Care Corporate Training Manager Name Role Phone Edward Elkins MD Unavailable [phone] Elva Rush MD Unavailable Zeenat Emanuel Primary Care Provider [phone] Robyn Brown MD Unavailable [phone] Allergies Active Allergy Reactions Criticality Noted Date Comments Prosper Inhibitors Other (See comments) Reaction: SEE ALLERGY COMMENTS, Atorvastatin Muscle pain Medium 01/21/2016 Morphine Other (See comments) Low 07/09/2023 Niacin Redness Low 10/18/2004 Pravastatin Muscle pain Medium 01/21/2016 Rosuvastatin Muscle pain Medium 01/21/2016 Uilunkn-Dgs-Gsu Reductase Inhibitors Muscle pain Medium 11/05/2023 Fluocinolone [...] 1 tablet (137 mcg total) by mouth web programmer before breakfast 90 tablet 3 10/10/19 25 026 Active amoxicillin 500 mg tablet/capsule TAKE 4 TABLETS BY MOUTH ONE HOUR PRIOR TO APPOINTMENT 10/07/19 25 Active metoprolol XL (TOPROL-XL) 25 mg extended [...] CPAP Assessment & Plan (10/07/2020 1:26 PM DRAPERY SEWER HAND): The patient will continue with CPAP usage [...] Plan (10/24/2019 10:36 AM CDT): Followed by urogynaecologist Class 2 severe obesity due t o [...] Overview (10/28/2021): Fosamax in past. Stopped by [facility]. Assessment & Plan (11/05/2024 8:16 AM CDT): Chronic, stable, continue Fosamax. DEXA due next year Assessment & Plan (11/05/2023 7:59 AM CDT): Stable, patient taking Fosamax Assessment & Plan (10/28/2021 8:40 AM CDT): Stable, followed by [facility]. Patient will continue calcium, vitamin- D, and exercise Assessment & Plan (10/27/2020 8:33 AM CDT): Followed by [facility]. Patient is taking calcium and vitamin-D. Patient [...] skin 11/27/2012 10/06/2019 Seborrheic keratoses 03/06/2011 020 Encounters Date Type Department Care Team Description 01/12/[address] [address] Zeenat Emanuel PA Medical Records Request 01/07/2025 8:30 AM CDT Office Visit [address] [address] Zeenat Emanuel PA Pre-operative clearance (Primary Dx); Screening mammogram for breast cancer; Primary osteoarthritis of both hips; Paroxysmal atrial fibrillation (HCC); Class 2 severe obesity due to excess calories with serious comorbidity and body mass index (BMI) of 36.0 to 36.9 in adult (HCC) 12/25/[address] [address] Zeenat Emanuel PA Surgery Clearance Form 12/08/2024 9:25 AM CDT Lab [facility] OP Lab [address] [place] [address] Other specified hypothyroidism 12/08/2024 Results Follow-Up [facility] [address] [phone] Zeenat Emanuel PA Thyroid Function [place] 11/21/2024 Results Follow-Up [facility] [address] [phone] Zeenat Emanuel PA Screening Mammogram Bilateral W Armen 11/20/2024 3:25 PM CDT - 11/20/2024 11:59 PM CDT Hospital Encounter [facility] Medical Office Bldg 1 [facility] [address] [facility] [address] [place], [place] [id number] Screening mammogram, encounter for Discharge Disposition: Discharge to home or self care 11/05/2024 7:30 AM CDT Office Visit [address] [address] Zeenat Emanuel PA Medicare annual wellness visit, [...] part 11/03/2024 1:00 PM CDT Office Visit [facility] [address] [place] [address] Medical Office Building [address] [place] [address] Gaston Bonilla NP Bariatric surgery status (Primary Dx); Encounter for fitting and adjustment of gastric lap band; BMI 34.0-34.9,adult 10/27/[address] [phone] Zeenat Emaneul PA recent visit to Ortho 10/21/2024 Orders Only [facility] Neurosurgery [address] [place] [address] Medical Office Building [address] [place] [address] Brian Shannon PA Closed fracture of hip, unspecified laterality, initial encounter (HCC) (Primary Dx) 10/14/2024 Letter (Out) [facility] Family Medicine [address] [address] 10/13/2024 Letter (Out) [facility] [address] [address] from Last 3 Months Immunizations Immunization Administration Dates Next Due DTP [...] ZOSTER LIVE 02/10/2009 ZOSTER Recombinant 07/18/2018,07/18/2018, 018 Surgical History Surgery Date Site/Laterality Comments TUBAL LIGATION TEAR DUCT SURGERY KNEE SURGERY Bilateral BLADDER SURGERY REPLACEMENT TOTAL KNEE BILATERAL LAPAROSCOPIC GASTRIC BANDING CYSTOSCOPY COLONOSCOPY TOTAL HIP ARTHROPLASTY 12/07/2020 Left ESOPHAGOGASTRODUODENOSCOPY 05/13/2022 - 06/12/2022 COMBINED HYSTEROSCOPY DIAGNOSTIC / D&C - 08/12/2023 KNEE ARTHROSCOPY W/ LATERAL RELEASE 05/05/2003 JOINT REPLACEMENT 12/20/2009 BARIATRIC SURGERY 12/09/2007 CARDIAC ELECTROPHYSIOLOGY MA PPING AND ABLATION 08/13/2022 - 08/12/2023 Medical History Medical History Date Comments Age related osteoporosis 10/25/2015 Arthralgia of shoulder 08/29/2013 Atrial fibrillation (HCC) 10/25/2015 Benign essential hypertension 11/06/2016 Capillary hemangioma of skin 11/27/2012 Hx of bladder cancer 10/16/2018 Impaired hearing 10/15/2017 Lentigo 11/27/2013 Malignant neoplasm of urinar y bladder (HCC) 10/25/2015 Mixed hyperlipidemia 10/25/2015 Osteoarthritis of shoulder 05/29/2017 Other specified hypothyroidism 10/25/2015 Vitamin D deficiency 10/18/2016 Colon polyp tubular adenoma, low grade dysplasia Coronary artery calcificatio n seen on CT scan 06/2017 (44.7) COVID-19 virus detected Arthritis History of cardiovascular stress test 11/2020 History of hip replacement 12/07/2020 left Sleep apnea 2010 Family History Medical History Relation Name Comments Diabetes Brother 1 Jj Heart attack Brother 1 Jj Diabetes Brother 2 Kidney failure Brother 2 Atrial fibrillation Brother 3 Hyperlipidemia Brother 3 Stroke Father Dad Atrial fibrillation Mother Mom Breast cancer Mother Mom late 60's COPD Mother Mom Heart disease Mother Mom Heart failure Mother Mom Hypertension Mother Mom Atrial fibrillation Sister 1 Breast cancer Sister 1 50's Colon cancer Sister 2 Hip fracture Neg Hx Osteoporosis Neg Hx Relation Name Status Comments Brother 1 Jj Alive Brother 2 Alive Brother 3 Alive Father Dad Mother Mom Sister 1 Alive Sister 2 Social History Tobacco Use Types Packs/Day Years Used Date Smoking Tobacco: Former Cigarettes 0.8 25 1 970 - 1995 Smokeless Tobacco: Never Tobacco Cessation:Counseling Given: Not [...] on file Legal Sex Female 7:50 PM DRAPERY SEWER HAND Gender Identity Female 04/04/2019 12:49 PM CDT Sexual Orientation Not on file Obstetrics History Para Term AB IAB SAB Ectopic Multiple Livin g Live Births 2 2 2 Date Outcome GA Total Labor Labor/2nd/3rd Weight Sex Type Anes PTL Jaqueline A1 A5 Name Clin Term Term Last Filed Vital Signs Vital Sign Reading [...] CDT Height 168.9 cm (5' 6.5) 01/07/2025 8:02 AM CDT Body Mass Index 36.29 01/07/2025 8:02 AM CDT Plan of Treatment Health Maintenance Due Date Last Done Comments Hepatitis B Screening 1963 Covid-19 Vaccine (2023-09 5 season) 2024 06/22/2021, 10/06/2020, 09/09/2020 Fall Risk Assessment 11/05/2025 11/05/2024, 11/05/2023, 10/30/2022, Additional history exists Well Visit 65+ 11/05/2025 11/05/2024, 10/12, 10/30/2022, Additional history exists Depression Screening 01/07/2026 01/07/2025, 11/05/2024, 11/05/2024, Additional history exists Osteoporosis Screening-Bone Density Scan 09/08/2026 09/08/2024, 07/09/2023, 07/09/2023, Additional history exists DTaP/Tdap/Td Vaccine (6 - Td or Tdap) 01/22/2030 01/23/2020, 09/13/2013, 06/09/2009, Additional history exists Zoster Vaccine Completed 07/18/2018, 01/2018, 05/17/2018, Additional history exists Colon Cancer Screening-CT Colonography Discontinued 08/13/2019 Colon Cancer Screening-Colonoscopy Discontinued 08/13/2019 Colon Cancer Screening-DNA Stool Discontinued 08/13/19 Colon Cancer Screening-FIT Discontinued 08/13/2019 Colon Cancer Screening-FOBT Discontinued 08/13/2019 Colon Cancer Screening-Sigmoidoscopy Discontinued 08/13/2019 Colorectal Cancer Screening Discontinued Pneumococcal vaccine 65+ Completed 024, 10/23/2014, 10/11/2014, Additional history exists Influenza Vaccine Completed 04/17/2024, , 05/13/2022, Additional history exists Procedures Procedure Name Priority Date/Time Associated Diagnosis [...] Read Routine (OP Routine) 09/08/2024 12:25 PM DRAPERY SEWER HAND Age-related osteoporosis without current pathological fracture HM COLONOSCOPY Routine 08/13/2019 from Last 3 Months or Most Recently Relevant to Health Maintenance Results * ECG 12 lead (01/07/2025 8:30 AM CDT) us Zeenat CALLAHAN ECG ORDERABLES Final Result * Thyroid Function [place] (12/08/2024 9:38 AM CDT) TSH 4.20 0.30 - 4.20 mcIUnit/mL Comment:Testing performed by : [facility], [address] [place] [address], [place]., [address] Blood 12/08/2024 9:38 AM CDT 12/08/2024 11:59 AM CDT us Zeenat CALLAHAN LAB BLOOD ORDERABLES Final Res ult JOSE [address] [facility] Department [place] [address] * Screening Mammogram Bilateral W [...] age 40, based on guidelines of the [employer] (ACR Practice Parameter for the Performance of Screening and Diagnostic Mammography) and [place] [employer]. For women [...] 1 or more sites (09/08/2024 12:25 PM DRAPERY SEWER HAND) Anatomical Region Laterality Modality Wrist, Body N/A Radiographic Pratima ging Narrative 09/08/2024 4:09 PM DRAPERY SEWER HAND Patient Name: Pallavi Baird Date of : 1945 Date of scan: 09/08/2024 Bone mineral density was performed on a HoloSynapticon Discovery Densitometer. Based on machine cross-calibration and [...] and scan interpretation were performed by Billy Civitelli, M.D. who is certified by the International Society of Clinical Densitometry. [id number] Jacey Hawley MD IMG DXA PROCEDURES Final Result * COLONOSCOPY (08/13/2019) Colonoscopy Unknown Historical Provider HEALTH MAINTENANCE Final Result from Last 3 Months or Most Recently Relevant to Health Maintenance Additional Health Concerns Infection Onset Date Last Indicated COVID19 Comment:07/01/20 08/27/2020 08/26/2020 Insurance MEDICARE [facility] MEDICARE [facility] FEDERAL Advance Directives For more information, please contact: [phone] Documents on File Type Date Recorded Patient Order Processing Specialist Expl anation ADVANCE DIRECTIVE 10/27/2020 8:13 AM Dhara potts of Hvac Instructor-Medical Care Teams Corporate Training Manager Relationship Specialty Start Date End Date Zeenat Emanuel PA [address] [place] [phone] PCP - General Family Medicine 03/08/20 Edward Elkins MD [address] [place] [phone] Consulting Physician Family Medicine 03/17/19 Elva Rush MD [address] [place] [address] Referring Physician General Surgery 10/24/19 Robyn Brown MD [address] [address] Referring Physician Gynecology 03/08/20
--- OUTSIDE RECORDS SUMMARY | 2025-01-13 09:53 | XMS_ITS | Encounter Summary ---
Author Organization [facility] Care Team Providers Care Top Lift And Automatic Window Repairer Name Role Phone Zeenat Emanuel Primary Care Provider [phone] Robyn Brown MD Primary Care Provider + Zeenat Emanuel Primary Care Provider [phone] Edward Elkins MD Unavailable + [phone] Elva Rush MD Unavailable Robyn Brown MD Primary Care Provider + Zeenat Emanuel Primary Care Provider [phone] Robyn Brown MD Unavailable [phone] Encounter Details Date Type Department Care Team (Latest Contact Info) Description 05/15/2018 Orders Only [facility] CLINCON[facility] ProviderCarlitos MD [address] [place] [address] Social History Tobacco Use Types Packs/Day Years Used Date Smoking Tobacco: Former Comments Unknown Sex and Gender Information Value Date Recorded Sex Assigned at Not on file Legal Sex Female 7:50 PM LITERACY COACH Gender Identity Female 04/04/2019 12:49 PM CDT Sexual Orientation Not on file documented as of this encounter Plan of Treatment Not on file documented as of this encounter Procedures Procedure Name Priority Date/Time Associated Diagnosis Comments SCAN - LABS 06/05/2018 12:00 AM CDT SCAN - LABS 06/05/2018 12:00 AM CDT SCAN - LABS 05/15/2018 12:00 AM CDT documented in this encounter Results * SCAN - LABS (06/05/2018 12:00 AM CDT) Narrative 06/05/2018 12:00 AM CDT Ordered by an unspecified provider. Historical Provider MD Final Res ult * SCAN - LABS (06/05/2018 12:00 AM CDT) Narrative 06/05/2018 12:00 AM CDT Ordered by an unspecified provider. Historical Provider Final Res ult * SCAN - LABS (05/15/2018 12:00 AM CDT) Narrative 05/15/2018 12:00 AM CDT Ordered by an unspecified provider. Historical Provider Final Res ult documented in this encounter Visit Diagnoses Not on filedocumented in this encounter Additional Health Concerns Infection Onset Date Last Indicated Resolved Time COVID19 Comment:07/01/20 08/27/2020 08/26/2020 documented as of this encounter Care Teams Top Lift And Automatic Window Repairer Relationship Specialty Start Date End Date Zeenat Emanuel PA [address] [place] [address] PCP - General 06/27/17 10/30/18 Robyn Brown MD [address] [address] PCP - General 10/31/18 03/16/19 Zeenat Emanuel PA [address] [place] [address] PCP - General Family Medicine 03/17/19 01/07/20 Robyn Brown MD [address] [place] [address] PCP - General 01/08/20 03/07/20 Zeenat Emanuel PA [address] [place] [address] PCP - General Family Medicine 03/08/20 Edward Elkins MD [address] [place] [address] Consulting Physician Family Medicine 03/17/19 Elva Rush MD [address] [place] [address] Referring Physician General Surgery 10/24/19 Robyn Brown MD [address] [place] [address] Referring Physician Gynecology 03/08/20 documented as of this encounter
--- OUTSIDE RECORDS SUMMARY | 2025-01-13 09:53 | XMS_ITS | CONTINUITY OF CARE DOCUMENT ---
Author Name farhad texjory Address Unknown Organization [facility] Address [address] [facility] [address] [place] [address] Phone [phone] Care Team Providers Care Machine Puller Over Name Role Phone Homero BURT, Gopi Unavailable SUDHEER RAMIREZ MD Unavailable KELLY GREWAL Unavailable [phone] PROBLEMS Condition Status Date Provider Notes HTN active Gopi Valentin MD Atrial fib, paroxysmal active Gopi Valentin MD Anemia active Gopi Valentin MD Hyperlipidemia active Gopi Valentin MD Degenerative joint disease active Gopi powell MD ENCOUNTERS Date Type Provider Location Encounter Diag nosis - In-person encounter Office Visit Gopi Valentin MD [facility] HTNAtrial fib, paroxysmalAnemiaHyperlipidemiaDegenerative joint disease VITAL SIGNS Date Observation Value Provider Body Mass Index (Ratio) 33.04 kg/m2 Pedro Pablo Valentin MD blood pressure, cuff size large Ke jaime Bryson blood pressure, diastolic 92 mm[Hg] Ke jaime Bryson blood pressure, systolic 162 mm[Hg] Carlota Bryson oxygen saturation, oximetry 96 % Bianca Bryson respiratory rate E&M 16 /min Bianca navarro pulse rate 77 /min Bianca Mak lder weight E&M 211 [lb_av] Bianca Mak lder height E&M 67 [in_i] Bianca blooder ALLERGIES Allergy Name Onset Date Reaction Criticality Status SIMALAR Low Criticality active HISTORY OF MEDICATION USE Medication Status Instructions Dates Provider Indications Com ments LOSARTAN POTASSIUM 50 MG ORAL TABLET active Take one tablet daily 1 Gopi Valentin MD GB 3 active take one pill twice a day 1 Bianca Bryson MEGAPAM active take one pill twice a day 1 Bianca Bryson ZINC CAPSULE active take one pill twice a day 1 Bianca Bryson MAGNESIUM CAPSULE active twice a day 1 Bianca Bryson KELP TABLET active once a day 1 Bianca Bryson SELENIMIN TABLET active once a day 1 Bianca Bryson ACIDOPHILUS CAPSULE active once a day 1 Bianca Bryson COENZYME Q10 100 MG ORAL TABLET active one tab daily 1 Bianca Bryson RENAMIDE active take one pill twice a day 1 Bianca Bryson THYRO COMPLEX active one pill twice a day 1 Bianca Bryson ASPIRIN 81 81 MG ORAL TABLET DELAYED RELEASE active one pill twice a day 1 Bianca Bryson COLACE CAPSULE active 2 a day 1 Bianca Bryson ZETIA 10 MG ORAL TABLET active ONE TAB. DAILY 1 Bianca Bryson [facility] LUTEIN 40 MG ORAL CAPSULE active once a day 1 Bianca Bryson OMEGA-3 FISH OIL 1000 MG ORAL CAPSULE active 2 pills twice a day 1 Bianca Bryson METOPROLOL TARTRATE 25 MG ORAL TABLET active one tab. twice daily 1 Bianca Faulknerrodolfomary VITAMIN D3 125 MCG (5000 UT) ORAL CAPSULE active 3 a week 1 Bianca Faulknerrodolfomary LEVO-T 175 MCG ORAL TABLET active once a day 1 Bianca Faulknerrodolfomary TYLENOL CAPSULE active as needed 1 Bianca Adelaide SOCIAL HISTORY Date Observation Value Provider social history E&M Marital Statu s: C hildren: 2 O ccupation: Retired Smoking History: Wenceslao matamoros is a former smoker. Gopi Valentin MD social history reviewed E&M revi ewed - no changes required Gopi Valentin MD smoking, year quit 1980 Bianca Hemant mullen smoking history, tot al pack/day 1 ppd Bianca Adelaide number of years as a smoker 20 a Bianca Adelaide cigarette use yes Bianca Carrie dunn smoking status Former smoker Bianca Miriam robles FAMILY HISTORY Family Member Condition Mother Family History of Co ngestive Heart Failure: INSURANCE PROVIDERS Payer name Policy type / Coverage type [place] red libertarian ID [facility] [id number] [place] MED[place] Medicare [id number] ADVANCE DIRECTIVES Name Date DISCUSSED - NO DECISION MADE TREATMENT PLAN Date Name Performer Cardiology New Patie nt :Needs left hip arthroplasty. W ill get regadenoson for risk stratification. Gopi Valentin MD Cardiology New Patient Gopi powell MD Cardiology New Patient Gopi powell MD Cardiology New Patient Gopi powell MD Cardiology New Patient :Last epi sode 5 years ago Gopi Valentin MD Date Name Stress Regadenoson HISTORY OF PROCEDURES Procedure Date Procedure Name Provider Procedure Notes S tatus EKG Gopi Valentin MD complete d
--- OUTSIDE RECORDS SUMMARY | 2025-01-13 09:53 | XMS_ITS | Encounter Summary ---
Author Organization [facility] Care Team Providers Care Lip And Gate Builder Name Role Phone Zeenat Emanuel Primary Care Provider [phone] Robyn Brown MD Primary Care Provider + Zeenat Emanuel Primary Care Provider [phone] Edward Elkins MD Unavailable [phone] Elva Rush MD Unavailable Robyn Brown MD Primary Care Provider + Zeenat Emanuel Primary Care Provider [phone] Robyn Brown MD Unavailable [phone] Encounter Details Date Type Department Care Team (Latest Contact Info) Description 10/17/2018 Orders Only [facility] CLINCONV ProviderCarlitos MD [address] [place] [address] Social History Tobacco Use Types Packs/Day Years Used Date Smoking Tobacco: Former Comments Unknown Sex and Gender Information Value Date Recorded Sex Assigned at Not on file Legal Sex Female 7:50 PM FOUNDRY METALLURGIST Gender Identity Female 04/04/2019 12:49 PM CDT Sexual Orientation Not on file documented as of this encounter Plan of Treatment Not on file documented as of this encounter Procedures Procedure Name Priority Date/Time Associated Diagnosis Comments SCAN - LABS 10/17/2018 12:00 AM FOUNDRY METALLURGIST documented in this encounter Results * SCAN - LABS (10/17/2018 12:00 AM FOUNDRY METALLURGIST) Narrative 10/17/2018 12:00 AM FOUNDRY METALLURGIST Ordered by an unspecified provider. us Historical Provider Final Res ult documented in this encounter Visit Diagnoses Not on filedocumented in this encounter Additional Health Concerns Infection Onset Date Last Indicated Resolved Time COVID19 Comment:07/01/20 08/27/2020 08/26/2020 documented as of this encounter Care Teams Lip And Gate Builder Relationship Specialty Start Date End Date Zeenat Emanuel PA [address] [place] [address] PCP - General 06/27/17 10/30/18 Robyn Brown MD [address] [place] [address] PCP - General 10/31/18 03/16/19 Zeenat Emanuel PA [address] [place] [address] PCP - General Family Medicine 03/17/19 01/07/20 Robyn Brown MD [address] [place] [address] PCP - General 01/08/20 03/07/20 Zeenat Emanuel PA [address] [place] [address] PCP - General Family Medicine 03/08/20 Edward Elkins MD [address] [place] [address] Consulting Physician Family Medicine 03/17/19 [place] [address] [place] [address] Referring Physician General Surgery 10/24/19 Robyn Brown MD [address] [facility] [address] [place] [address] Referring Physician Gynecology 03/08/20 documented as of this encounter
--- OUTSIDE RECORDS SUMMARY | 2025-01-13 09:53 | XMS_ITS | Encounter Summary ---
Author Organization [facility] Address [address] [facility] [address] [place] [address] Phone Care Team Providers Care Package Dyer Name Role Phone Edward Elkins MD Unavailable [phone] Elva Rush MD Unavailable Zeenat Emanuel Primary Care Provider [phone] Robyn Brown MD Unavailable [phone] Encounter Details Date Type Department Care Team (Late st Contact Info) Description 10/23/2023 Telephone [facility] ([facility] - [facility] Minimally Invasive Surgery [facility] Advanced Medicine [address]th Floor, [place] [address] Gaston Bonilla NP [address] [facility] [phone] [place] [address] Social History Tobacco Use Types Packs/Day Years Used Date Smoking Tobacco: Former Cigarettes 0.8 25 1 - 1994 Smokeless Tobacco: Never Alcohol Use Standard Drinks/Week Comments Not Currently 0 (1 standard drink = 0.6 oz pur e alcohol) AUDIT-C Answer Date Recorded Q1: How often do you have a drink containing alcohol? Never 10/30/2022 Q2: How many drinks containi ng alcohol do you have on a typical day when you are drinking? Patient does not drink Q3: How often do you have si x or more drinks on one occasion? Never 10/30/2022 PHQ-2 Answer Date Recorded PHQ-2 Total Score (If total score is 3 or more points, staff should administer the PHQ-9) 0 10/23/2022 Comments No Sex and Gender Information Value Date Recorded Sex Assigned at Not on file Legal Sex Female 7:50 PM GARAGE LABORER Gender Identity Female 04/04/2019 12:49 PM CDT Sexual Orientation Not on file documented as of this encounter Plan of Treatment Not on file documented as of this encounter Visit Diagnoses Not on filedocumented in this encounter Additional Health Concerns Infection Onset Date Last Indicated Resolved Time COVID19 Comment:07/01/20 08/27/2020 08/26/2020 documented as of this encounter Care Teams Package Dyer Relationship Specialty Start Date End Date Zeenat Emanuel PA [address] [place] [address] PCP - General Family Medicine 03/08/20 Edward Elkins MD [address] [place] [address] Consulting Physician Family Medicine 03/17/19 Elva Rush MD [address] [place] [address] Referring Physician General Surgery 10/24/19 Robyn Brown MD [address] [facility] [address] [place] [address] Referring Physician Gynecology 03/08/20 documented as of this encounter
--- OUTSIDE RECORDS SUMMARY | 2025-01-13 09:53 | XMS_ITS | Patient Health Record ---
Author Organization [facility] Address [address] [place], [place] [address] Care Team Providers Care Mobile Architect Name Role Phone Zeenat Emanuel Primary Care Provider UnavailMUKESH Watkins Unavailable [phone] Allergies Allergen (clinical drug ingredient) Drug/Non Drug Allergy documented on EMR Reaction Allergy Type Onset Date Status fluocinolone Synalar Unknown Drug Allergy 12/16/2014 act sigrid Reason For Referral No Information Medications Medication SIG (Take, Route, Frequency, Duration) Notes Start Date End Date Status meloxicam 15 MG Oral Tablet [Mobic] ORAL meloxicam 15 MG Oral Tablet [Mobic]Original Medicationmeloxicam 15 MG Oral Tablet [Mobic] *Reorder from [email or web address] for eRx and Interaction Alerts* 12/16/2014 Active Immunizations Vaccine Route Administration Date Status Comme nts Influenza, high dose seasonal Unknown 08/29/2023 Refuse d Pneumococcal conjugate PCV 13 Unknown 08/29/2023 Refuse d Social History Tobacco Use: Social History Observation Description Date Details (start date - stop date) Former Smoker NA - NA Tobacco Control (Standard) Question Answer Notes Tobacco use: Former smoker Plan Of Treatment No Information Insurance Providers Payer Name Payer Address Payer Phone Subscriber Number Group Number Insured Name Patient Relationship to Insured Coverage Start Date Coverage End Date Medicare Part B [place] [address] [place] [address] [id number] JOSIAH MENENDEZ Self - patient is the insured [facility] ([facility]) ATTN CLAIMS [address] [place] [address] [id number] JOSIAH MENENDEZ Self - patient is the insured [facility] B [address] [address] [place], [place] [id number] JOSIAH MENENDEZ Self - patient is the insured
--- OUTSIDE RECORDS SUMMARY | 2025-01-13 09:54 | XMS_ITS | Encounter Summary ---
Author Organization [facility] Healthcare Address [address] [place] [address] Care Team Providers Care Rn Float Name Role Phone Edward Elkins MD Unavailable + [phone] Elva Rush MD Unavailable Zeenat Emanuel Primary Care Provider [phone] Robyn Brown MD Unavailable [phone] Encounter Details Date Type Department Care Team (Late st Contact Info) Description 11/21/2024 Results Follow-Up [facility] Family Medicine [address] [address] Zeenat Emanuel PA [address] [place] [address] Screening Mammogram Bilateral W Armen Social History Tobacco Use Types Packs/Day Years Used Date Smoking Tobacco: Former Cigarettes 0.8 25 1 0 - 1994 Smokeless Tobacco: Never Alcohol Use Standard Drinks/Week Comments Not Currently 0 (1 standard drink = 0.6 oz pur e alcohol) AUDIT-C Answer Date Recorded Q1: How often do you have a drink containing alcohol? Never 11/03/2024 Q2: How many drinks containi ng alcohol do you have on a typical day when you are drinking? Patient does not drink Q3: How often do you have si x or more drinks on one occasion? 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 Brown at [phone] . documented in this encounter Plan of Treatment Not on file documented as of this encounter Visit Diagnoses Not on filedocumented in this encounter Additional Health Concerns Infection Onset Date Last Indicated Resolved Time COVID19 Comment:07/01/20 08/27/2020 08/26/2020 documented as of this encounter Care Teams Rn Float Relationship Specialty Start Date End Date Zeenat Emanuel PA [address] [place] [address] PCP - General Family Medicine 03/08/20 Edward Elkins MD [address] [place] [address] Consulting Physician Family Medicine 03/17/19 [place] [address] [place] [id number] Referring Physician General Surgery 10/24/19 Robyn Brown MD [address] [place] [address] Referring Physician Gynecology 03/08/20 documented as of this encounter
--- OUTSIDE RECORDS SUMMARY | 2025-01-13 09:54 | XMS_ITS | Encounter Summary ---
Author Organization [facility] Facility Care Team Providers Care Carpenters Supervisor Name Role Phone Zeenat Emanuel Primary Care Provider [phone] Zeenat Emanuel Primary Care Provider [phone] Unknown, Notinfile Primary Care Provider Unavail able Zeenat Emanuel Primary Care Provider [phone] Robyn Brown MD Primary Care Provider + Zeenat Emanuel Primary Care Provider [phone] Edward Elkins MD Unavailable + [phone] Elva Rush MD Unavailable Robyn Brown MD Primary Care Provider + Zeenat Emanuel Primary Care Provider [phone] Robyn Brown MD Unavailable [phone] Encounter Details Date Type Department Care Team (Latest Contact Info) Description 06/05/2016 Orders Only [facility] CLINCONV ProviderCarlitos MD [address] [place] [address] Social History Tobacco Use Types Packs/Day Years Used Date Smoking Tobacco: Former Comments Unknown Sex and Gender Information Value Date Recorded Sex Assigned at Not on file Legal Sex Female 7:50 PM CLIENT EVALUATOR Gender Identity Female 04/04/2019 12:49 PM CDT Sexual Orientation Not on file documented as of this encounter Plan of Treatment Not on file documented as of this encounter Procedures Procedure Name Priority Date/Time Associated Diagnosis Comments SCAN - LABS 06/20/2016 12:00 AM CLIENT EVALUATOR documented in this encounter Results * SCAN - LABS (06/20/2016 12:00 AM CLIENT EVALUATOR) Narrative 06/20/2016 12:00 AM CLIENT EVALUATOR Ordered by an unspecified provider. us Historical Provider Final Res ult documented in this encounter Visit Diagnoses Not on filedocumented in this encounter Additional Health Concerns Infection Onset Date Last Indicated Resolved Time COVID19 Comment:07/01/20 08/27/2020 08/26/2020 documented as of this encounter Care Teams Carpenters Supervisor Relationship Specialty Start Date End Date Zeenat Emanuel PA [address] [place] [address] PCP - General 03/28/17 05/30/17 Zeenat Emanuel PA [address] [place] [address] PCP - General 05/31/17 05/31/17 Unknown, Notinfile PCP - General 06/01/17 06/26/17 eZenat Emanuel PA [address] [place] [address] PCP - General 06/27/17 10/30/18 Robyn Brown MD [address] [address] PCP - General 10/31/18 03/16/19 Zeenat Emanuel PA [address] [place] [address] PCP - General Family Medicine 03/17/19 01/07/20 Robyn Brown MD [address] [place] [address] PCP - General 01/08/20 03/07/20 Zeenat Emanuel PA [address] [place] [address] PCP - General Family Medicine 03/08/20 Edward Elkins MD [address] [place] [address] Consulting Physician Family Medicine 03/17/19 Elva Rush MD [address] [place] [id number] Referring Physician General Surgery 10/24/19 Robyn Brown MD [address] [place] [address] Referring Physician Gynecology 03/08/20 documented as of this encounter
--- OUTSIDE RECORDS SUMMARY | 2025-01-13 09:54 | XMS_ITS | Encounter Summary ---
Author Organization [facility] Facility Care Team Providers Care Health Care Marketing Manager Name Role Phone Zeenat Emanuel Primary Care Provider [phone] Robyn Brown MD Primary Care Provider + Zeenat Emanuel Primary Care Provider [phone] Edward Elkins MD Unavailable + [phone] Elva Rush MD Unavailable Robyn Brown MD Primary Care Provider + Zeenat Emanuel Primary Care Provider [phone] Robyn Brown MD Unavailable [phone] Encounter Details Date Type Department Care Team (Latest Contact Info) Description 11/14/2017 Orders Only [facility] CLINCONV ProviderCarlitos MD [address] [place] [address] Social History Tobacco Use Types Packs/Day Years Used Date Smoking Tobacco: Former Comments Unknown Sex and Gender Information Value Date Recorded Sex Assigned at Not on file Legal 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 us Historical Provider Final Res ult documented in this encounter Visit Diagnoses Not on filedocumented in this encounter Additional Health Concerns Infection Onset Date Last Indicated Resolved Time COVID19 Comment:07/01/20 08/27/2020 08/26/2020 documented as of this encounter Care Teams Health Care Marketing Manager Relationship Specialty Start Date End Date Zeenat Emanuel PA [address] [place] [address] PCP - General 06/27/17 10/30/18 Robyn Brown MD [address] [place] [address] PCP - General 10/31/18 03/16/19 Zeenat Emanuel PA [address] [place] [address] PCP - General Family Medicine 03/17/19 01/07/20 Robyn Brown MD [address] [place] [address] PCP - General 01/08/20 03/07/20 Zeenat Emanuel PA [address] [place] [address] PCP - General Family Medicine 03/08/20 Edward Elkins MD [address] [place] [address] Consulting Physician Family Medicine 03/17/19 [place] [address] [place] [address] Referring Physician General Surgery 10/24/19 Robyn Brown MD [address] [facility] [address] [place], [place] [phone] Referring Physician Gynecology 03/08/20 documented as of this encounter
--- OUTSIDE RECORDS SUMMARY | 2025-01-13 09:54 | XMS_ITS | Encounter Summary ---
Author Organization [facility] Facility Care Team Providers Care Cluster Bore Operator Name Role Phone Zeenat Emanuel Primary Care Provider [phone] Zeenat Emanuel Primary Care Provider [phone] Unknown, Notinfile Primary Care Provider Unavail able Zeenat Emanuel Primary Care Provider [phone] Robyn Brown MD Primary Care Provider + Zeenat Emanuel Primary Care Provider [phone] Edward Elkins MD Unavailable + [phone] Elva Rush MD Unavailable Robyn Brown MD Primary Care Provider + Zeenat Emanuel Primary Care Provider [phone] Robyn Brown MD Unavailable [phone] Encounter Details Date Type Department Care Team (Latest Contact Info) Description 08/14/2016 Orders Only [facility] CLINCONV ProviderCarlitos MD [address] [place] [address] Social History Tobacco Use Types Packs/Day Years Used Date Smoking Tobacco: Former Comments Unknown Sex and Gender Information Value Date Recorded Sex Assigned at Not on file Legal Sex Female 7:50 PM BLENDER CONVEYOR OPERATOR Gender Identity Female 04/04/2019 12:49 PM CDT Sexual Orientation Not on file documented as of this encounter Plan of Treatment Not on file documented as of this encounter Procedures Procedure Name Priority Date/Time Associated Diagnosis Comments SCAN - LABS 08/14/2016 12:00 AM BLENDER CONVEYOR OPERATOR documented in this encounter Results * SCAN - LABS (08/14/2016 12:00 AM BLENDER CONVEYOR OPERATOR) Narrative 08/14/2016 12:00 AM BLENDER CONVEYOR OPERATOR Ordered by an unspecified provider. us Historical Provider Final Res ult documented in this encounter Visit Diagnoses Not on filedocumented in this encounter Additional Health Concerns Infection Onset Date Last Indicated Resolved Time COVID19 Comment:07/01/20 08/27/2020 08/26/2020 documented as of this encounter Care Teams Cluster Bore Operator Relationship Specialty Start Date End Date Zeenat Emanuel PA [address] [place] [address] PCP - General 03/28/17 05/30/17 Zeenat Emanuel PA [address] [place] [address] PCP - General 05/31/17 05/31/17 Unknown, Notinfile PCP - General 06/01/17 06/26/17 Zeenat Emanuel PA [address] [place] [address] PCP - General 06/27/17 10/30/18 Robyn Brown MD [address] [address] PCP - General 10/31/18 03/16/19 Zeenat Emanuel PA [address] [place] [address] PCP - General Family Medicine 03/17/19 01/07/20 Robyn Brown MD [address] [place] [address] PCP - General 01/08/20 03/07/20 Zeenat Emanuel PA [address] [place] [address] PCP - General Family Medicine 03/08/20 Edward Elkins MD [address] [place] [address] Consulting Physician Family Medicine 03/17/19 Elva Rush MD [address] [place] [address] Referring Physician General Surgery 10/24/19 Robyn Brown MD [address] [place] [address] Referring Physician Gynecology 03/08/20 documented as of this encounter
--- OUTSIDE RECORDS SUMMARY | 2025-01-13 09:54 | XMS_ITS | Encounter Summary ---
Author Organization [facility] Facility Care Team Providers Care Transonic Engineer Name Role Phone Zeenat Emanuel Primary Care Provider [phone] Zeenat Emanuel Primary Care Provider [phone] Unknown, Notinfile Primary Care Provider Unavail able Zeenat Emanuel Primary Care Provider [phone] Robyn Brown MD Primary Care Provider + Zeenat Emanuel Primary Care Provider [phone] Edward Elkins MD Unavailable + [phone] Elva Rush MD Unavailable Robyn Brown MD Primary Care Provider + Zeenat Emanuel Primary Care Provider [phone] Robyn Brown MD Unavailable [phone] Encounter Details Date Type Department Care Team (Latest Contact Info) Description 05/23/2017 Orders Only [facility] CLINCONV ProviderCarlitos MD [address] [place] [address] Social History Tobacco Use Types Packs/Day Years Used Date Smoking Tobacco: Former Comments Unknown Sex and Gender Information Value Date Recorded Sex Assigned at Not on file Legal Sex Female 7:50 PM TRANSIT MAN Gender Identity Female 04/04/2019 12:49 PM CDT Sexual Orientation Not on file documented as of this encounter Plan of Treatment Not on file documented as of this encounter Procedures Procedure Name Priority Date/Time Associated Diagnosis Comments SCAN - LABS 05/23/2017 12:00 AM CDT documented in this encounter Results * SCAN - LABS (05/23/2017 12:00 AM CDT) Narrative 05/23/2017 12:00 AM CDT Ordered by an unspecified provider. us Historical Provider Final Res ult documented in this encounter Visit Diagnoses Not on filedocumented in this encounter Additional Health Concerns Infection Onset Date Last Indicated Resolved Time COVID19 Comment:07/01/20 08/27/2020 08/26/2020 documented as of this encounter Care Teams Transonic Engineer Relationship Specialty Start Date End Date Zeenat Emanuel PA [address] [place] [address] PCP - General 03/28/17 05/30/17 Zeenat Emanuel PA [address] [place] [address] PCP - General 05/31/17 05/31/17 Unknown, Notinfile PCP - General 06/01/17 06/26/17 Zeenat Emanuel PA [address] [place] [address] PCP - General 06/27/17 10/30/18 Robyn Brown MD [address] [id number] PCP - General 10/31/18 03/16/19 Zeenat Emanuel PA [address] [place] [address] PCP - General Family Medicine 03/17/19 01/07/20 Robyn Brown MD [address] [place] [address] PCP - General 01/08/20 03/07/20 Zeenat Emanuel PA [address] [place] [address] PCP - General Family Medicine 03/08/20 Edward Elkins MD [address] [place] [address] Consulting Physician Family Medicine 03/17/19 Elva Rush MD [address] [place] [phone] Referring Physician General Surgery 10/24/19 Robyn Brown MD [address] [place] [address] Referring Physician Gynecology 03/08/20 documented as of this encounter
--- OUTSIDE RECORDS SUMMARY | 2025-01-13 09:54 | XMS_ITS ---
Author Organization [facility] Address [address] [place], [place] [address] Care Team Providers Care Circulation Sales Representative Name Role Phone Zeenat Emanuel Primary Care Provider UnavailMUKESH Watkins Unavailable [phone] GINO RUSH [phone] REASON FOR VISIT *General care Encounters Encounter Location Date Provider Diagnosis [facility] [address] [place], [place] [id number] 08/29/2023 GINO RUSH Plan Of Treatment No Information Progress Notes * JOSIAH MENENDEZ CDOB:02/1945 (79 yo F)Acc No.[id number]:08/29/2023 Patient: Herlinda CURIEL JOSIAH Jimenez Provider: Abilio uRsh DPM :1945 A ge:78 Y S ex:Female Date:08/29/2023 Address:[address] [place] [address] [id number] Pcp:Zeenat Emanuel Subjective: * Chief Complaints: * 1 . *General care. * Medical History: Objective: * Vitals: Assessment: Plan: * Treatment: * Billing Information: * Visit Code: * Procedure Codes: * Electronic signature of DONITA VAZQUEZ DPM on 01/13/2025 at 09:54 AM CDT Sign off status: Pending * Provider: Abilio Rush DPM Date: 0 08/29/2023 Generated for [place]/Nacho/Jackson on: 0 01/13/2025 09:54 AM CDT
--- OUTSIDE RECORDS SUMMARY | 2025-01-13 09:54 | XMS_ITS | Encounter Summary ---
Author Organization [facility] Facility Care Team Providers Care Verse Writer Name Role Phone Zeenat Emanuel Primary Care Provider [phone] Zeenat Emanuel Primary Care Provider [phone] Unknown, Notinfile Primary Care Provider Unavail able Zeenat Emanuel Primary Care Provider [phone] Robyn Brown MD Primary Care Provider + Zeenat Emanuel Primary Care Provider [phone] Edward Elkins MD Unavailable + [phone] Elva Rush MD Unavailable Robyn Brown MD Primary Care Provider + Zeenat Emanuel Primary Care Provider [phone] Robyn Brown MD Unavailable [phone] Encounter Details Date Type Department Care Team (Latest Contact Info) Description 10/20/2015 Orders Only [facility] CLINCONV ProviderCarlitos MD [address] [place] [address] Social History Tobacco Use Types Packs/Day Years Used Date Smoking Tobacco: Former Comments Unknown Sex and Gender Information Value Date Recorded Sex Assigned at Not on file Legal Sex Female 7:50 PM TOYS AND GAMES HAND FINISHER Gender Identity Female 04/04/2019 12:49 PM CDT Sexual Orientation Not on file documented as of this encounter Plan of Treatment Not on file documented as of this encounter Procedures Procedure Name Priority Date/Time Associated Diagnosis Comments SCAN - LABS 10/20/2015 12:00 AM TOYS AND GAMES HAND FINISHER documented in this encounter Results * SCAN - LABS (10/20/2015 12:00 AM TOYS AND GAMES HAND FINISHER) Narrative 10/20/2015 12:00 AM TOYS AND GAMES HAND FINISHER Ordered by an unspecified provider. us Historical Provider Final Res ult documented in this encounter Visit Diagnoses Not on filedocumented in this encounter Additional Health Concerns Infection Onset Date Last Indicated Resolved Time COVID19 Comment:07/01/20 08/27/2020 08/26/2020 documented as of this encounter Care Teams Verse Writer Relationship Specialty Start Date End Date Zeenat Emanuel PA [address] [place] [address] PCP - General 03/28/17 05/30/17 Zeenat Emanuel PA [address] [place] [address] PCP - General 05/31/17 05/31/17 Unknown, Notinfile PCP - General 06/01/17 06/26/17 Zeenat Emanuel PA [address] [place] [address] PCP - General 06/27/17 10/30/18 Robyn Brown MD [address] [address] PCP - General 10/31/18 03/16/19 Zeenat Emanuel PA [address] [place] [address] PCP - General Family Medicine 03/17/19 01/07/20 Robyn Brown MD [address] [place] [address] PCP - General 01/08/20 03/07/20 Zeenat Emanuel PA [address] [place] [address] PCP - General Family Medicine 03/08/20 Edward Elkins MD [address] [place] [address] Consulting Physician Family Medicine 03/17/19 Elva Rush MD [address] [place] [address] Referring Physician General Surgery 10/24/19 Robyn Brown MD [address] [place] [address] Referring Physician Gynecology 03/08/20 documented as of this encounter
--- OUTSIDE RECORDS SUMMARY | 2025-01-13 09:54 | XMS_ITS | Encounter Summary ---
Author Organization [facility] Address [address] [place] [address] Care Team Providers Care Paper Sample Clerk Name Role Phone Edward Elkins MD Unavailable [phone] Elva Rush MD Unavailable Zeenat Emanuel Primary Care Provider [phone] Robyn Brown MD Unavailable [phone] Reason for Visit * Reason Onset Date Comments Medical Records Request 01/12/2025 Encounter Details Date Type Department Care Team (Late st Contact Info) Description 01/12/2025 Telephone [facility] Family Medicine [address] [address] Zeenat Emanuel PA [address] [address] Medical Records Request Social History Tobacco Use Types Packs/Day Years [...] on file Legal Sex Female 7:50 PM STAIR BUILDER Gender Identity Female 04/04/2019 12:49 PM CDT Sexual Orientation Not on file documented as of this encounter Miscellaneous Notes * Telephone Encounter - Nicole Jacobs - 01/12/2025 10:58 AM CDT Records faxed * Telephone Encounter - Eloisa Carbone - 01/12/2025 10:29 AM CDT Medical Records Request Request Type: Records Request Practice Will Complete What records are being requested:Copy of EKG from 01.07.25 Who will the records be sent to (if being sent to another doctor, list the doctor's name and specialty)? [facility] attn mir for oracle agile plm consultant appointment. Can fax to [phone] Date Needed: 01.13.25 by 10am Delivery Method: Fax Fax number to use for return of records: [phone] Additional Comments/Concerns: Marked as priority since needs before her 10am appointment 01.13.25 Does the message need to be routed? Yes-Action Needed documented in this encounter Plan of Treatment Not on file documented as of this encounter Visit Diagnoses Not on filedocumented in this encounter Additional Health Concerns Infection Onset Date Last Indicated Resolved Time COVID19 Comment:07/01/20 08/27/2020 08/26/2020 documented as of this encounter Care Teams Paper Sample Clerk Relationship Specialty Start Date End Date Zeenat Emanuel PA [address] [place] [address] PCP - General Family Medicine 03/08/20 Edward Elkins MD [address] [place] [address] Consulting Physician Family Medicine 03/17/19 [place] [address] [place] [phone] Referring Physician General Surgery 10/24/19 Robyn Brown MD [address] [id number] Referring Physician Gynecology 03/08/20 documented as of this encounter
--- OUTSIDE RECORDS SUMMARY | 2025-01-13 09:54 | XMS_ITS | Clinical Summary ---
Author Organization [facility] Address [address] [place] [id number] Care Team Providers Care Supervisor Gas Meter Repair Name Role Phone Unavailable Primary Care Provider Unavailabl e Allergies No known active allergies Medications metoprolol tartrate (LOPRESSOR) 25 mg tablet Take 25 mg by mouth 2 times daily. Active ezetimibe (ZETIA) 10 mg tablet Take 10 mg by mouth daily. Active omega-3 acid ethyl esters (LOVAZA) 1 gram Capsule Take 4 Grams by mouth daily. 4 capsules daily Active levothyroxine 175 mcg tablet Take 175 mcg by mouth daily in the morning. Active aspirin (ECOTRIN EC) 81 mg Tablet, Delayed Release (E.C.) Take 81 mg by mouth daily. Active apixaban (Eliquis) 2.5 mg tablet Take 2.5 mg by mouth 2 times daily. Active lutein 40 mg Capsule Take by mouth. Active cholecalciferol 1,250 mcg (50,000 unit) Capsule Take by mouth. Weekly Active Family History Medical History Relation Name Comments Heart Disease Father Stroke Father Cancer Mother Heart Disease Mother Relation Name Status Comments Father Mother Social History Tobacco Use Types Packs/Day Years Used Date Smoking Tobacco: Former Cigarettes Q uit: 1989 Smokeless Tobacco: Never Tobacco Cessation:Counseling Given: Not Answered Alcohol Use Standard Drinks/Week Comments Never 0 (1 standard drink = 0.6 oz pur e alcohol) Comments Unknown Sex and Gender Information Value Date Recorded Sex Assigned at Not on file Legal Sex Female 1:53 PM CDT Gender Identity Not on file Sexual Orientation Not on file Last Filed Vital Signs Vital Sign Reading Time Taken Comments Blood Pressure 135/80 06/09/2022 8:45 AM CDT Pulse 59 06/09/2022 8:45 AM CDT Temperature 36 C (96.8 F) 06/09/2022 8:31 AM CDT Respiratory Rate 14 06/09/2022 8:45 AM CDT Oxygen Saturation 100% 06/09/2022 8:45 AM CDT Inhaled Oxygen Concentration - - Weight 94.3 kg (208 lb) 06/09/2022 6:58 AM CDT Height 170.2 cm (5' 7) 06/09/2022 6:58 AM CDT Body Mass Index 32.58 06/09/2022 6:58 AM CDT Plan of Treatment Health Maintenance Due Date Last Done Comments RSV VACCINE (60+ or ) (1 - 1-dose 75+ series) 2019 INFLUENZA VACCINE (#1) 2024 3, 04/18/2022, 05/13/2021, Additional history exists COVID-19 Vaccine (2023-2 5 season) 2024 06/22/2021, 10/06/2020, 09/09/2020 OSTEOPOROSIS SCREENING 07/09/2028 3, 2022, 2022, Additional history exists DTAP/TDAP/TD VACCINES (5 - T d or Tdap) 01/22/2030 01/23/2020, 09/13/2013, 06/09/2009, Additional history exists COLORECTAL SCREENING Discontinued 12/12/2011 Colorectal Cancer Screening Discontinued PNEUMOCOCCAL VACCINE 50+ YEARS Completed 0 10/23/2014, 10/11/2014, 06/13/2014, Additional history exists ZOSTER VACCINE Completed 07/18/2018, 12/2017, 02/10/2009 FIT-DNA Q 3 years Discontinued FIT/FOBT Q 1 year Discontinued Flex Sig/CT Colonography Q 5 years Discontinued Insurance MEDICARE PART A AND B [facility] [employer] Advance Directives For more information, please contact: [phone] * Full Code (Latest Code Status on File) Date Activated Date Inactivated Comments 06/09/2022 6:58 AM 06/09/2022 11:26 AM
--- OUTSIDE RECORDS SUMMARY | 2025-01-13 09:54 | XMS_ITS ---
Author Organization [facility] Address [address] [place], [place] [id number] Care Team Providers Care Administrative Services Manager Name Role Phone Jenae Zeenat Primary Care Provider UnavailMUKESH Watkins Unavailable [phone] GINO RUSH Unavailable [phone] Allergies Allergen (clinical drug ingredient) Drug/Non Drug Allergy documented on EMR Reaction Allergy Type Onset Date Status fluocinolone Synalar Unknown Drug Allergy 12/16/2014 act sigrid REASON FOR VISIT *General care, Patient presents for at risk foot care Medications Medication SIG (Take, Route, Frequency, Duration) Notes Start Date End Date Status meloxicam 15 MG Oral Tablet [Mobic] ORAL meloxicam 15 MG Oral Tablet [Mobic]Original Medicationmeloxicam 15 MG Oral Tablet [Mobic] *Reorder from [employer] for eRx and Interaction Alerts* 12/16/2014 Active Immunizations Vaccine Route Administration Date Status Comme nts Influenza, high dose seasonal Unknown 08/29/2023 Refuse d Pneumococcal conjugate PCV 13 Unknown 08/29/2023 Refuse d Social History Tobacco Use: Social History Observation Description Date Details (start date - stop date) Former Smoker NA - NA Tobacco Control (Standard) Question Answer Notes Tobacco use: Former smoker Vital Signs Height 67 in 08/29/2023 Weight 202 lbs 08/29/2023 BMI 31.63 kg/m2 08/29/2023 Height-cm 170.18 cm 08/29/2023 Weight-kg 91.63 kg 08/29/2023 Encounters Encounter Location Date Provider Diagnosis [facility] [address] [place], [place] [id number] 08/29/2023 GINO RUSH Onychomycosis B35.1 ; Pain in right toe(s) M79.674 ; Pain in left toe(s) M79.675 and Atherosclerosis of lower elwha arteries of extremities with intermittent claudication, bilateral legs I70.213 Assessments Encounter Date Diagnosis (ICD Code) Assessment Notes Treatment Notes Treatment Clinical Notes Section Notes 08/29/2023 Onychomycosis (ICD-10 - B35.1) NAIL DEBRIDEMENT: Nails 1-5 Bilateral were debrided extensively with nail nippers and emery board, reducing length and girth to pink healthy tissue with any subungual debris and necrotic tissue removed 08/29/2023 Pain in right toe(s) (ICD-10 - M79.674) 08/29/2023 Pain in left toe(s) (ICD-10 - M79.675) 08/29/2023 Atherosclerosis of lower elwha arteries of extremities with intermittent claudication, bilateral legs (ICD-10 - I70.213) 08/29/2023 Other Shoe Gear Recommendation: Advised patient on appropriate shoe gear for protection, healing and good foot health Emollient: Recommend that the patient use an emollient such as [id number] r Eucerin cream, Vanicream, or other lotion to the affected area. Recommend bringing in custom orthotics to have the length trimmed as per patient request to match her birkenstock inserts Plan Of Treatment Treatment Notes Assessment Notes Onychomycosis NAIL DEBRIDEMENT: Na ils 1-5 Bilateral were debrided extensively with nail nippers and emery board, reducing length and girth to pink healthy tissue with any subungual debris and necrotic tissue removed Other Shoe Gear Recommendation: Advised patient on appropriate shoe gear for protection, healing and good foot health Emollient: Recommend that the patient use an emollient such as [id number] Eucerin cream, Vanicream, or other lotion to the affected area. Recommend bringing in custom orthotics to have the length trimmed as per patient request to match her birkenstock inserts Next Appt Details Follow Up: 3 Months, Reason: at risk foot care Progress Notes * JOSIAH MENENDEZ CDOB:02/1945 (79 yo F)Acc No.[id number]:08/29/2023 Patient: JOSIAH ARCE Provider: Abilio Rush DPM :1945 A ge:78 Y S ex:Female Date:08/29/2023 Address:[address] [place] [address], [place], [id number] Pcp:Zeenat Emanuel Subjective: * Chief Complaints: * 1 . *General care. 2. Patient presents for at risk foot care. * HPI: H PI: General care P atient presents to the office for at risk foot care. Patient states that their nails are thickened, elongated and painful. Patient states that it is aggravated by shoe gear. Onset is gradual. Patient denies being diabetic., Patient is taking prescription blood thinners., Date last seen by Dr. Emanuel was October 2022., Initials EW. States the orthotics she got from Dr Lobo are not working for her because they are too long, wondering if they can be cut down like her birkenstock ones but she did not bring them in today. * ROS: G eneral / Constitutional: Patient denies c hills, fatigue, fever. C ardiovascular: Patient denies p alpatations, other vascular anomalies.?Patient complains of h air loss on legs, extremities cool. M usculoskeletal: Patient denies o rthotic use, broken foot bone, childhood foot problems. S kin: Patient denies h gaviota, rash. P atient complains of f ungal nails, nail changes, dry skin. N eurologic: Patient denies s troke, Numbness, Burning/Tingling. ? * Medical History: * Family History: F ather: PRN - Father: :: Stroke,,known absent . M other: PRN - Mother: :: Bladder cancer,,known absent , :: Cancer,,known absent . B rother: SIB - Brother: . S ister: SIB - Sister: , :: Arthritis,,known absent , :: Breast Ca,,known absent . * Social History: T obacco Use: T obacco Control (Standard) T obacco use: F ormer smoker. M igrated Social History: M igrated Social History: Smoking Status : Former tobacco user , History of tobacco use :. * Medications: T aking meloxicam 15 MG Oral Tablet [Mobic] ORAL , Notes to Pharmacist: meloxicam 15 MG Oral Tablet [Mobic]Original Medicationmeloxicam 15 MG Oral Tablet [Mobic] *Reorder from [employer] for eRx and Interaction Alerts*, Medication List reviewed and reconciled with the patient * Allergies: S ynalar: Allergy - Onset Date 12/16/2014. Objective: * Vitals: S hoe Size: 11, Wt: 202 lbs, Wt-k.63 kg, Ht: 67 in, Ht-cm: 170.18 cm, BMI: 31.63 Index, Body Surface Area: 2.08. * Examination: C onstitutional: Constitutional T he patient is awake, alert, well developed, well groomed and well nourished.. M usculoskeletal: Muscle Strength M uscle strength is 5/5 in regards to dorsiflexion, plantarflexion, inversion, and eversion in bilateral lower extremities.. Foot Structure T he foot structure is noted to be, normal, bilaterally. Gait T here is normal gait noted. N eurologic: Concord-Weinstin 5.07 monofilament I ntact protective sensation via 5.07 g swmf bilateral. Gross sensation G ross sensation is intact to light touch..? V ascular: Dorsalis pedis pulse: 1 /4, bilateral. Posterior tibial pulse: 0 /4, bilaterally. Capillary refill: l ess than 3 seconds, bilaterally. ? D ermatologic: Skin findings: b ilateral, Skin is thin, atrophic and lacking pedal hair.. Nail pathology: N ails 1-5 bilateral are elongated, thick, discolored, and dystrophic with subungual debris. They are painful to palpation. Hyperkeratotic Skin Lesion T here is no evidence of hyperkeratosis. Assessment: * Assessment: 1. O nychomycosis - B35.1 (Primary) 2 . P ain in right toe(s) - M79.674? 3. P ain in left toe(s) - M79.675 4 . A therosclerosis of lower elwha arteries of extremities with intermittent claudication, bilateral legs - I70.213 Plan: * Treatment: 2. O thers Notes: Shoe Gear Recommendation: Advised patient on appropriate shoe gear for protection, healing and good foot health Emollient: Recommend that the patient use an emollient such as [id number]-bgqakoj Eucerin cream, Vanicream, or other lotion to the affected area. Recommend bringing in custom orthotics to have the length trimmed as per patient request to match her birkenstock inserts * Immunizations: Influenza, high dose seasonal (Not administered - Refused: Not Administered in Our Office / Per Patient's Paperwork Flu Vaccine Administered in 2019) Pneumococcal conjugate PCV 13 (Not administered - Refused: Not Administered in Our Office / Per Patient's Paperwork Pneumonia Vaccine Administered in 2014) ???Immunization record has been reviewed and updated. * Follow Up: 3 Months (Reason: at risk foot care) * Billing Information: * Visit Code: 55783 Office Visit, Est Pt., Level 3. * Procedure Codes: * Electronic signature of DONITA VZAQUEZ DPM on 01/13/2025 at 09:54 AM CDT Sign off status: Pending * Provider: Abilio Rush DPM Date: 0 08/29/2023 Generated for Valentine hill/Nacho/Jackson on: 0 01/13/2025 09:54 AM CDT History and Physical Notes * HPI (History of Present Illness) Category Sub-Category Detail Notes Category Not es HPI General care Patient presents to the office for at risk foot care. Patient states that their nails are thickened, elongated and painful. Patient states that it is aggravated by shoe gear. Onset is gradual. Patient denies being diabetic., Patient is taking prescription blood thinners., Date last seen by Dr. Emanuel was October 2022., Initials EW States the orthotics she got from Dr Lobo are not working for her because they are too long, wondering if they can be cut down like her birkenstock ones but she did not bring them in today. Examination Category Sub-Category Detail Notes Category Not es Dermatologic Skin findings: bilateral, Skin is thin, atrophic and lacking pedal hair. Nail pathology: Nails 1-5 bilateral are elongated, thick, discolored, and dystrophic with subungual debris. They are painful to palpation Hyperkeratotic Skin Lesion There is no e vidence of hyperkeratosis Neurologic Concord-Weinstin 5.07 monofilamen t Intact protective sensation via 5.07 g swmf bilateral Gross sensation Gross sensation is i ntact to light touch. Vascular Dorsalis pedis pulse: 1/4, bilateral Capillary refill: less than 3 seconds, bilaterally Posterior tibial pulse: 0/4, bilaterally Musculoskeletal Muscle Strength Muscle strength is 5/5 in regards to dorsiflexion, plantarflexion, inversion, and eversion in bilateral lower extremities. Foot Structure The foot structure i s noted to be, normal, bilaterally Gait There is normal gait noted Constitutional Constitutional The patient is a wake, alert, well developed, well groomed and well nourished.
[2025-01-13 11:11] LABS: Basophils Absolute Auto 0.1 K/mm3 (0.0-0.1); Basophils Percent Auto 0.9 % (0.2-1.2); Eosinophils Absolute Auto 0.2 K/mm3 (0-0.3); Eosinophils Percent Auto 3.3 % (0-4.4); Hematocrit 40.1 % (37.0-47.0); Hemoglobin 12.8 g/dL (12.0-15.0); Immature Granulocyte Absolute 0.02 K/mm3 (0.00-0.031); Immature Granulocyte Percent A 0.3 % (0-0.5); Lymphocytes Absolute Auto 1.53 K/mm3 (0.9-3.2); Lymphocytes Percent Auto 26.3 % (18.3-44.2); Mean Corpuscular HGB Conc 31.9 g/dl (32-36); Mean Corpuscular Hemoglobin 29.2 pg (26-34); Mean Corpuscular Volume 91.3 fl (80-100); Monocytes Absolute Auto 0.4 K/mm3 (0.1-0.6); Monocytes Percent Auto 7.4 % (2.6-8.5); Neutrophils Absolute Auto 3.6 K/mm3 (1.3-6.7); Neutrophils Percent Auto 61.8 % (45.5-73.1); Platelet Count Result 184 k/mm3 (150-375); Red Blood Count 4.39 M/mm3 (4.2-5.4); Red Cell Distribution Width 14.6 % (11.5-14.5); White Blood Count 5.8 K/mm3 (4.5-10.0)
[2025-01-13 11:50] LABS: Albumin Level 4.3 g/dL (3.5-5.1); Anion Gap 5 mmol/L (4-12); Blood Urea Nitrogen 17 mg/dL (7-17); Calcium 9.3 mg/dL (8.4-10.2); Carbon Dioxide 29 mmol/L (22-30); Chloride 104 mmol/L (98-107); Estimated Glomerular Filt Rate > 60; Glucose 87 mg/dL (65-110); Potassium 3.9 mmol/L (3.4-5.0); Sodium 138 mmol/L (137-145)
[2025-01-13 12:46] LABS: Urine Cotinine NEGATIVE
[2025-01-13 15:26] LABS: Hemoglobin A1C 5.5 % (<5.7)
--- NOTE | 2025-01-30 12:03 | PM.IMHP ---
H&P: HPI History of Present Illness Date/Time: 01/30/25 12:03 Chief Complaint: DJD right hip Narrative: 79-year-old female who presents today for a right anterior total hip arthroplasty. Patient has moderately severe osteoarthritis of the hip. She has had a recent MRI scan which showed subchondral bone marrow edema and insufficiency fractures of the femoral head. Patient has been having symptoms for over 6 months in the hip. At this point symptoms are limiting her activities. She is having use a cane on a regular basis due to the pain. At this point patient feels she would rather proceed with total hip arthroplasty rather than continue nonsurgical treatment. Review of Systems Review of Systems: All systems reviewed & are unremarkable except as noted in HPI and below PMFSH Past Medical History Medical History (normal spontaneous vaginal delivery) x2 with hemorrhage each time History of bladder cancer 2004 Hypothyroid Hyperlipidemia HTN (hypertension) AAA (abdominal aortic aneurysm) Atrial fib/flutter, transient Surgical History Surgical History History of left hip replacement History of knee surgery bilateral arthroscope 2009 History of laparoscopic adjustable gastric banding 2007 Status post cystoscopy original in 2004 with ongoing surveillance Status post tubal ligation H/O cardiac radiofrequency ablation Family History Family History (Updated 01/12/25 @ 14:04 by Caitlin Barrientos CMA) Father Cerebrovascular accident Social History Social History Smoking packs per day: 0.5 Smoking cigarettes per day: 10.0 Years smoked: 10 Smoking pack-years: 5.00 Smoking status: Former smoker Tobacco type: cigarettes Smoking end date: 02/10/85 Alcohol intake: never Substance use: never Do You Feel Safe in your Home?: Yes Lack of Transportation: No Lack of Food: Never True Current Housing: I Have Housing Concerned About Future Housing: No Difficulty Paying Gas/Electric Bills: No Difficulty Paying for Meds: No Currently Unemployed: No Education: Associate Degree Difficulty w/ Childcare or Family Care: No Living arrangements: alone Spiritual care concerns: No Meds Home Medications and Allergies Home Medications ?Medication ?Instructions ?Recorded ?Confirmed ?Type apixaban 5 mg tablet (Eliquis) 5 mg PO BID 01/17/23 01/13/25 History omega-3 acid ethyl esters 1 gram 2 cap PO BID 01/17/23 01/13/25 History capsule alendronate 70 mg tablet (Fosamax) 70 mg PO WEEKLY 10/22/24 01/13/25 History cholecalciferol (vitamin D3) 125 125 mcg PO DAILY 10/22/24 01/13/25 History mcg (5,000 unit) capsule ferrous sulfate 27 mg iron tablet 27 mg PO .QOD 10/22/24 01/13/25 History folic acid-vit B6-vit B12 2.5 1 tablet PO DAILY 10/22/24 01/13/25 History mg-25 mg-1 mg tablet inulin 2 gram chewable tablet 2 g PO DAILY 10/22/24 01/13/25 History (Prebiotic Fiber) lactobacillus combination no.9 4 4,000 mmu cells PO DAILY 10/22/24 01/13/25 History billion cell capsule (Adult 50 Plus Probiotic) levothyroxine 150 mcg tablet 137 mcg PO QAM 10/22/24 01/13/25 History magnesium 200 mg tablet 200 mg PO DAILY 10/22/24 01/13/25 History vitamins A,C,J-eqje-qorssz 4,296 1 cap PO BID 10/22/24 01/13/25 History mcg-226 mg-90 mg capsule (PreserVision AREDS) zinc glycinate 20 mg capsule 20 mg PO DAILY 10/22/24 01/13/25 History metoprolol succinate 25 mg capsule 12.5 mg PO DAILY 01/12/25 01/13/25 History sprinkle, ext. release 24 hr tramadol 50 mg tablet 50 mg PO Q6H PRN pain #30 tabs 01/19/25 Rx Allergies Allergy/AdvReac Type Severity Reaction Status Date / Time fluocinolone acetonide (From Allergy Mild Rash Verified 01/13/25 09:58 Synalar) nafarelin (From Synarel) Allergy Mild Rash Verified 01/13/25 09:58 SUNIL Inhibitors AdvReac Cough Verified 01/13/25 09:58 morphine AdvReac REFUSING, Verified 01/13/25 09:58 MOTHER- N/V Zxusrnw-NBS-WtV Reductase AdvReac Muscle Pain Verified 01/13/25 09:58 Inhibitor Exam Narrative: 79-year-old female alert pleasant. She is 5 ft 7 to 126 lb BMI is 35. Skin around the hip and groin crease are normal. She walks with a mild limp. She is using a cane. Right hip flexion is to 110? without discomfort external rotation is 30 internal rotation to 15 both internal and external cause her medial groin pain. Stinchfield maneuver causes her groin pain. She has normal abduction strength lateral position. Normal sensation to both lower extremities. 2+ dorsalis pedis and posterior tibial artery pulse palpable. No edema in lower extremity. Resp: Auscultation: clear to auscultation bilaterally Cardio: Rate: other Rhythm: abnormal rhythm Assessment and Plan Assessment and plan (1) Primary osteoarthritis of right hip: Code(s): M16.11 - Unilateral primary osteoarthritis, right hip Status: Acute Plan 79-year-old female who has moderately severe osteoarthritis of the right hip on the x-rays, she also has significant bony marrow edema the femoral head with some insufficiency fractures. Patient is having severe symptoms on a daily basis. At this point patient would like to proceed with total hip arthroplasty. Surgical procedures well as the risks and complications were discussed in detail all questions were answered and we will proceed. Patient does have a history of AFib and is on Eliquis chronically. She has seen her automotive brake adjuster and has been cleared without any additional testing. She will stop her Eliquis 3 days prior to surgery. Patient's nasal swab was negative. Hemoglobin 12.8 and platelets were 184. Chem panel is all within normal limits creatinine 0.50
== END 2025-01-13 09:35 | disposition home or self-care (01) ==
PROVIDERS: PCP Physician Assistant; Visit Provider Orthopaedic Surgery
DX: M16.11 Unilateral primary osteoarthritis, right hip (principal); Z01.818 Encounter for other preprocedural examination
CPT/HCPCS: 80048; 80307; 82040; 83036; 85025; 87081

== ENCOUNTER 2025-02-02 00:33 | Day surgery (SDC) | payer MEDICARE, BC, SELFPAY ==
[2025-01-13 10:05] VITALS: BP 148/90; PULSE 90; RESP 16; TEMP 37; O2SAT 99; BMI 35.4
--- NOTE | 2025-01-13 10:33 | PC.NURSE ---
Report to the Outpatient Waiting Room, entrance under the green pavilion located off [facility], at time __0600am on date _02/02/25 . Planned Procedure Time: _0730am .? Time changes happen often and if your time is changed the preop area will call you the afternoon before. - You and your visitor will be asked to self-screen and do not enter if you have any COVID symptoms. Please call surgeon if you need to reschedule. - A mask is optional within the hospital at this time. Patients may have clear liquids (water, carbonated beverages, clear teas, apple juice) until 3 hours prior to surgery with a maximum of 20 ounces. - No food from midnight until time of surgery and no smoking, or chewing tobacco (or any form of nicotine). No chewing gum, candy or mints. (0430am) Take only the following medications with a SIP of water on the morning of surgery: ____Levothyroxine DO NOT STOP ANY OF YOUR OTHER PRESCRIPTION MEDICATIONS PRIOR TO SURGERY EXCEPT THE FOLLOWING Hold all vitamins and supplements for 3 days per anesthesiologist. Date to take last dose 01/29/25 Medications to discontinue per physician Eliquis for 3 days prior Date to take last dose____01/29/25 Hold the Fishoil for 7 days prior, date to take last dose is 01/24/25 Please no make-up, nail belarusian, hairspray, perfume, deodorant, or body powder the day of surgery.? No jewelry (including any body piercings) or valuables the day of surgery, leave them at home.? Please take a shower or bath the night before, or the morning of, surgery with an antibacterial soap.? Wear comfortable, loose fitting clothing.? HIBICLEANSE as prescribed - Jewelry must be removed prior to entering the operating room.? Rings and piercings that are not removed may be cut off. - The hospital will not accept responsibility for valuables.? - Please leave all valuables, including medications, at home the day of surgery. If you are going home after surgery, a licensed local combination truck driver must drive you home.? - NO public transportation without another adult if you receive anesthesia. - We recommend that an adult stay with you for 24 hours following discharge. - We also recommend that you do not drive, make important decision, drink alcoholic beverages, or take any drugs that were not prescribed by your health care provider for at least 24 hours after your discharge time. Follow any additional instructions given to you from your surgeon. Telephone instructions given to ___Patient and asked if any additional questions and then verbalized understanding. Patient advised to call surgeon office or pre surgery nurse liaison [phone] if any additional questions.
--- NOTE | 2025-01-30 12:08 | HP_ITS ---
This report was moved to the correct visit on 02/04/2025. The original report was signed by Tez Luis PA-C on 01/30/25 1208. H&P: HPI History of Present Illness Date/Time: 01/30/25 12:03 Chief Complaint: DJD right hip Narrative: 79-year-old female who presents today for a right anterior total hip arthroplasty. Patient has moderately severe osteoarthritis of the hip. She has had a recent MRI scan which showed subchondral bone marrow edema and insufficiency fractures of the femoral head. Patient has been having symptoms for over 6 months in the hip. At this point symptoms are limiting her activities. She is having use a cane on a regular basis due to the pain. At this point patient feels she would rather proceed with total hip arthroplasty rather than continue nonsurgical treatment. Review of Systems Review of Systems: All systems reviewed & are unremarkable except as noted in HPI and below PMFSH Past Medical History Medical History (normal spontaneous vaginal delivery) x2 with hemorrhage each timeHistory of bladder cancer 2005Hypothyroid Hyperlipidemia HTN (hypertension) AAA (abdominal aortic aneurysm) Atrial fib/flutter, transient Surgical History Surgical History History of left hip replacement History of knee surgery bilateral arthroscope 2010History of laparoscopic adjustable gastric banding 2008Status post cystoscopy original in 2004 with ongoing surveillanceStatus post tubal ligation H/O cardiac radiofrequency ablation Family History Family History (Updated 01/12/25 @ 14:04 by Caitlin Barrientos CMA) Father Cerebrovascular accident Social History Social History Smoking packs per day: 0.5 Smoking cigarettes per day: 10.0 Years smoked: 10 Smoking pack-years: 5.00 Smoking status: Former smoker Tobacco type: cigarettes Smoking end date: 02/10/85 Alcohol intake: never Substance use: never Do You Feel Safe in your Home?: Yes Lack of Transportation: No Lack of Food: Never True Current Housing: I Have Housing Concerned About Future Housing: No Difficulty Paying Gas/Electric Bills: No Difficulty Paying for Meds: No Currently Unemployed: No Education: Associate Degree Difficulty w/ Childcare or Family Care: No Living arrangements: alone Spiritual care concerns: No Meds Home Medications and Allergies Home Medications ?Medication ?Instructions ?Recorded ?Confirmed ?Type apixaban 5 mg tablet (Eliquis) 5 mg PO BID 01/17/23 01/13/25 History omega-3 acid ethyl esters 1 gram 2 cap PO BID 01/17/23 01/13/25 History capsule alendronate 70 mg tablet (Fosamax) 70 mg PO WEEKLY 10/22/24 01/13/25 History cholecalciferol (vitamin D3) 125 125 mcg PO DAILY 10/22/24 01/13/25 History mcg (5,000 unit) capsule ferrous sulfate 27 mg iron tablet 27 mg PO .QOD 10/22/24 01/13/25 History folic acid-vit B6-vit B12 2.5 1 tablet PO DAILY 10/22/24 01/13/25 History mg-25 mg-1 mg tablet inulin 2 gram chewable tablet 2 g PO DAILY 10/22/24 01/13/25 History (Prebiotic Fiber) lactobacillus combination no.9 4 4,000 mmu cells PO DAILY 10/22/24 01/13/25 History billion cell capsule (Adult 50 Plus Probiotic) levothyroxine 150 mcg tablet 137 mcg PO QAM 10/22/24 01/13/25 History magnesium 200 mg tablet 200 mg PO DAILY 10/22/24 01/13/25 History vitamins A,C,K-evrv-jbuzbr 4,296 1 cap PO BID 10/22/24 01/13/25 History mcg-226 mg-90 mg capsule (PreserVision AREDS) zinc glycinate 20 mg capsule 20 mg PO DAILY 10/22/24 01/13/25 History metoprolol succinate 25 mg capsule 12.5 mg PO DAILY 01/12/25 01/13/25 History sprinkle, ext. release 24 hr tramadol 50 mg tablet 50 mg PO Q6H PRN pain #30 tabs 01/19/25 Rx Allergies Allergy/AdvReac Type Severity Reaction Status Date / Time fluocinolone acetonide (From Allergy Mild Rash Verified 01/13/25 09:58 Synalar) nafarelin (From Synarel) Allergy Mild Rash Verified 01/13/25 09:58 SUNIL Inhibitors AdvReac Cough Verified 01/13/25 09:58 morphine AdvReac REFUSING, Verified 01/13/25 09:58 MOTHER- N/V Chdglgq-XAM-IoQ Reductase AdvReac Muscle Pain Verified 01/13/25 09:58 Inhibitor Exam Narrative: 79-year-old female alert pleasant. She is 5 ft 7 to 126 lb BMI is 35. Skin around the hip and groin crease are normal. She walks with a mild limp. She is using a cane. Right hip flexion is to 110? without discomfort external rotation is 30 internal rotation to 15 both internal and external cause her medial groin pain. Stinchfield maneuver causes her groin pain. She has normal abduction strength lateral position. Normal sensation to both lower extremities. 2+ dorsalis pedis and posterior tibial artery pulse palpable. No edema in lower extremity. Resp: Auscultation: clear to auscultation bilaterally Cardio: Rate: other Rhythm: abnormal rhythm Assessment and Plan Assessment and plan (1) Primary osteoarthritis of right hip: Code(s): M16.11 - Unilateral primary osteoarthritis, right hip Status: Acute Plan 79-year-old female who has moderately severe osteoarthritis of the right hip on the x-rays, she also has significant bony marrow edema the femoral head with some insufficiency fractures. Patient is having severe symptoms on a daily basis. At this point patient would like to proceed with total hip arthroplasty. Surgical procedures well as the risks and complications were discussed in detail all questions were answered and we will proceed. Patient does have a history of AFib and is on Eliquis chronically. She has seen her electronics system mechanic and has been cleared without any additional testing. She will stop her Eliquis 3 days prior to surgery. Patient's nasal swab was negative. Hemoglobin 12.8 and platelets were 184. Chem panel is all within normal limits creatinine 0.50 Please be advised this is a medical document. It is intended for hvxe-wi-bxsz communication. It is written in medical language and may contain unfamiliar abbreviations or verbiage. Medical documents are intended to carry relevant information, facts as evident, and the clinical opinion of the practitioner at the time of the encounter. This report may have been done utilizing a voice recognition system. Attempts have been made to correct errors. However, there may be uncorrected grammatical, spelling, and recognition errors present. The file time of this note does not necessarily represent the time the patient was seen. Report Initialized date/time: Tez Luis PA-C 01/30/25 / 1208 Electronically signed by: Tez Luis PA-C 01/30/25 [id number]
[2025-02-02] VITALS (13 sets, daily range): BP systolic 105–165; BP diastolic 64–87; PULSE 59–73; RESP 12–20; TEMP 36.2–37; O2SAT 97–100
--- NOTE | ~2025-02-02 | XR_ITS ---
EXAMINATION: XR surgery orthopedic DATE: 02/02/2025 11:42 INDICATION: Intraoperative evaluation during right total hip arthroplasty TECHNIQUE: Single frontal fluoroscopic spot image of the right hip was obtained. The amount of fluoro scopy time used during this procedure was 1.0 minutes. Total DAP was 0.451 mGym^2. COMPARISON: None. FINDINGS: Intraoperative image during a right total hip arthroplasty demonstrate placement of an acetabular com ponent which appears in near anatomic alignment on the single image provided. Acetabular component is affixed with at least a single screw. No fractures in the visualized bones. Expected lucent soft tis malinda gas at the operative bed. IMPRESSION: 1. Expected appearance during right total hip arthroplasty. See procedure note for further detail. Reviewed, dictated and finalized at location A.
--- NOTE | ~2025-02-02 | XR_ITS ---
EXAMINATION: XR hip RT 1V w AP pelvis DATE: 02/02/2025 11:42 INDICATION: Postoperative evaluation following right total hip arthroplasty TECHNIQUE: Anteroposterior and lateral views of the right hip were obtained. COMPARISON: Radiographs dated 10/22/2024 FINDINGS: Interval placement of a noncemented right total hip arthroplasty which appears well seated in near an atomic alignment.Acetabular component is affixed with a single screw. No interval change in a previou sly placed similar noncemented left total hip arthroplasty which is also in near-anatomic alignment. No fractures identified. Expected small amount of lucent gas at the operative bed about the right hip . Cervical phleboliths in the pelvis. IMPRESSION: 1. Right total hip arthroplasty, negative for postoperative purposes. Reviewed, dictated and finalized at location A.
--- NOTE | 2025-02-02 06:49 | P.PNAN_ITS ---
Anes - Initial Pre Proc Eval Procedure: Operation Date: 02/02/25 07:30 Proposed Procedures p Right Total Hip Arthroplasty Anterior Approach - Damon Rahman MD Date/Time: 02/02/25 06:49 Surgeon: Damon Rahman MD Pre Op Diagnosis: oa right hip Patient Data Age: 79 Gender: F Height: 1.7 m Weight: 102.5 kg Last Vital Signs Temp 37.0 C 01/13/25 10:05 Pulse 90 01/13/25 10:05 Resp 16 01/13/25 10:05 BP 148/90 H 01/13/25 10:05 Pulse Ox 99 01/13/25 10:05 O2 Del Method Room Air 01/13/25 10:05 Allergies Allergy/AdvReac Type Severity Reaction Status Date / Time fluocinolone acetonide (From Allergy Mild Rash Verified 01/13/25 09:58 Synalar) nafarelin (From Synarel) Allergy Mild Rash Verified 01/13/25 09:58 SUNIL Inhibitors AdvReac Cough Verified 01/13/25 09:58 morphine AdvReac REFUSING, Verified 01/13/25 09:58 MOTHER- N/V Qbmwvku-MCA-KpA Reductase AdvReac Muscle Pain Verified 01/13/25 09:58 Inhibitor Home Medications ?Medication ?Instructions ?Recorded ?Confirmed ?Type apixaban 5 mg tablet (Eliquis) 5 mg PO BID 01/17/23 01/13/25 History omega-3 acid ethyl esters 1 gram 2 cap PO BID 01/17/23 01/13/25 History capsule alendronate 70 mg tablet (Fosamax) 70 mg PO WEEKLY 10/22/24 01/13/25 History cholecalciferol (vitamin D3) 125 125 mcg PO DAILY 10/22/24 01/13/25 History mcg (5,000 unit) capsule ferrous sulfate 27 mg iron tablet 27 mg PO .QOD 10/22/24 01/13/25 History folic acid-vit B6-vit B12 2.5 1 tablet PO DAILY 10/22/24 01/13/25 History mg-25 mg-1 mg tablet inulin 2 gram chewable tablet 2 g PO DAILY 10/22/24 01/13/25 History (Prebiotic Fiber) lactobacillus combination no.9 4 4,000 mmu cells PO DAILY 10/22/24 01/13/25 History billion cell capsule (Adult 50 Plus Probiotic) levothyroxine 150 mcg tablet 137 mcg PO QAM 10/22/24 01/13/25 History magnesium 200 mg tablet 200 mg PO DAILY 10/22/24 01/13/25 History vitamins A,C,A-mxur-svuwgd 4,296 1 cap PO BID 10/22/24 01/13/25 History mcg-226 mg-90 mg capsule (PreserVision AREDS) zinc glycinate 20 mg capsule 20 mg PO DAILY 10/22/24 01/13/25 History metoprolol succinate 25 mg capsule 12.5 mg PO DAILY 01/12/25 01/13/25 History sprinkle, ext. release 24 hr tramadol 50 mg tablet 50 mg PO Q6H PRN pain #30 tabs 01/19/25 Rx Patient hx anesthesia problems: none Family hx anesthesia problems: none Results Review: All pre-operative results and documents have been reviewed as part of the pre- operative evaluation. [facility] Past Medical History Medical History (normal spontaneous vaginal delivery) x2 with hemorrhage each time History of bladder cancer 2004 Hypothyroid Hyperlipidemia HTN (hypertension) AAA (abdominal aortic aneurysm) Atrial fib/flutter, transient Surgical History Surgical History History of left hip replacement History of knee surgery bilateral arthroscope 2009 History of laparoscopic adjustable gastric banding 2007 Status post cystoscopy original in 2004 with ongoing surveillance Status post tubal ligation H/O cardiac radiofrequency ablation Family History Family History Father Cerebrovascular accident Social History Social History Smoking packs per day: 0.5 Smoking cigarettes per day: 10.0 Years smoked: 10 Smoking pack-years: 5.00 Smoking status: Former smoker Tobacco type: cigarettes Smoking end date: 02/10/85 Alcohol intake: never Substance use: never Do You Feel Safe in your Home?: Yes Lack of Transportation: No Lack of Food: Never True Current Housing: I Have Housing Concerned About Future Housing: No Difficulty Paying Gas/Electric Bills: No Difficulty Paying for Meds: No Currently Unemployed: No Education: Associate Degree Difficulty w/ Childcare or Family Care: No Living arrangements: alone Spiritual care concerns: No Anes - Eval Final PreProcedure Day of Procedure 02/02/25 06:49 Patient weight: obese Heart: regular rate and rhythm Lungs: clear to auscultation Airway: Mallampati scale class II Neurological: alert and oriented Last oral intake: >/= 8 hours ASA classification: III Emergent: no Anesthetic plan: proceed Anesthesia type and monitoring: general ETT and standard monitoring Results Review: All pre-operative results and documents have been reviewed as part of the pre- operative evaluation. Informed Consent: The patient's anesthetic plan and its attendant risks and benefits were discussed with the patient/family/POA. Questions were solicited and answers provided to the satisfaction of the patient/family/POA.
[2025-02-02] MEDS: ACETAMINOPHEN 500 MG TABLET 1000 MG PO (06:50)
[2025-02-02] MEDS: LACTATED RINGERS 1,000 ML 30 ML IV CONT ×2 (06:55→11:31)
[2025-02-02] MEDS: VANCOMYCIN 1,500 MG/NS 500 ML BAG 250 MG IVPB (06:55)
[2025-02-02] MEDS: TRANEXAMIC ACID 1,000MG/ISO100 1,000 MG/100 ML BAG 200 MG IVPB (06:55)
--- NOTE | 2025-02-02 07:13 | WPDHPUPDATE1 ---
History and Physical Update Update Date/Time: 02/02/25 07:13 History and Physical has been reviewed, including an updated exam of the patient. There are NO changes in the patient's condition. Risks, benefits, and alternatives have been discussed and questions answered. Patient agrees to proceed with procedure.
[2025-02-02] MEDS: ceFAZolin 2 GM/D5W 50 ML 2 GM/50 ML BAG IVPB ×3 (07:39→23:35)
[2025-02-02] MEDS: SODIUM CHLORIDE 0.9% IV 37.7 ML, MORPHINE SULFATE INJ (*CRX) 2 MG, ROPivacaine HCL 1% 2... INFILTRATE (08:16)
[2025-02-02] MEDS: ceFAZolin SODIUM 1 GM VIAL 3 GM (08:16)
[2025-02-02] MEDS: TRANEXAMIC ACID 1,000 MG/10 ML AMPUL 1000 MG IV PUSH (11:04)
[2025-02-02] MEDS: ceFAZolin SODIUM 1 GM VIAL IV PUSH (11:05)
--- NOTE | 2025-02-02 11:39 | PM.OP ---
Procedure Note - Brief Procedure Note - Brief Date of procedure: 02/02/25 oa right hip Procedure performed: Right anterior total hip arthroplasty Surgeon: LONDON Michelle Findings: 79-year-old female underwent right total hip arthroplasty on 02/02. I was involved in the procedure including positioning the patient on the OR table in 1st assisting through the time surgery, total time spent was 3 and hours
--- NOTE | 2025-02-02 11:44 | P.OP_ITS ---
Procedure Note - Detailed Date of Procedure 02/02/25 Pre-op Diagnosis oa right hip Post-op Diagnosis Same Procedure Performed Right total hip arthroplasty direct anterior approach Surgeon Damon Rahman MD Spinning Frame Cleaner Tez Jimenez Anesthesia General Description of Procedure Patient was brought to the operating room and general anesthesia was administered. Boots were applied to the feet after padding and SCDs applied to the legs running during the procedure. [facility] and the right hip prepped draped usual fashion. She received 2 g of Ancef weight based vancomycin 1 g of TXA preoperatively. A 10 cm longitudinal incision was made starting 3 cm lateral to the ASIS. Dissection was carried down to the fascia over the tensor fascia sujit which was longitudinally incised and elevated off the TFL muscle. The TFL was unusually large and had some fatty infiltration which made exposure little bit more difficult. Interval between TFL and rectus femoris developed. Crossing branches of ascending lateral femoral circumflex vessels were ligated with suture divided. Retractor was placed anteromedial to the hip capsule hip abducted internally rotated and the gluteus minimus elevated off the lateral capsule. Inverted T capsulotomy was performed femoral neck osteotomy made according to preoperative templating. The femoral head was removed. The acetabulum was exposed labrum excised. Residual articular cartilage curetted. Right leg was externally rotated extended with the table hook and after removal of a portion of the lateral capsular flap, the interval between conjoined tendon and piriformis was incised allowing the piriformis to flip and allowing adequate mobilization for exposure. With the leg back in the horizontal position the acetabulum repair the drugs 1st medialized the medial wall of 44 Reamer and reaming up to size 50 which gave circumferential reaming to the periphery. The 50 trial fit nicely. The 50 emphasis cup was chosen and impacted and fully seated at 40? of abduction and anteversion such that the anterior rim of the shell was mm under the anterior rim of the acetabular lip. This achieved excellent purchase. A single screw was placed in the ilium which obtained excellent purchase. The [address] liner was fully seated without difficulty. With the table hook in place the leg was externally rotated extended and we broached up to a size 7 Actis which is which she had on the other side. With trialing we saw that we had appropriate approach I with a 1.5 head high offset and under fluoroscopy this gave us equal leg lengths. Soft tissue tension was appropriate as well. The there was torsional play however with the 7 broach. To a size 8 broach which gave an excellent fit with no torsional play. We trialed with the high offset neck and -2 head because of the jump in offset with the size 8 and this again gave us equal leg lengths and offset. Calcar planing was completed and the size 8 high offset Actis stem was fully seated without difficulty. There were no cracks in the calcar. The -2 stainless steel head was impacted onto the clean and dried trunnion and after irrigation of the wound the hip was reduced and stability reconfirmed. The superior limb of the capsulotomy was reapproximated with 2. Vicryl. Local anesthetic cocktail was injected into the periarticular soft tissues. The fascia was closed with running 1. Vicryl drain deep in the subcu fat layer and skin closed with 2 subcutaneous Vicryl and glue. EBL was estimated by [employer] at 650 cc and she received 250 cc has packed red blood cells from [employer]. Two additional g of Ancef 1 g TXA given time wound closure. Bone quality seem satisfactory to allow her to be weight-bearing as tolerated after surgery with a walker. [facility] Billing Surgery - Charge Forward: Surgery Billing (Right total hip arthroplasty)
--- NOTE | 2025-02-02 13:19 | PM.IMCN ---
Assessment and Plan Assessment and plan (1) Primary osteoarthritis of right hip: Code(s): M16.11 - Unilateral primary osteoarthritis, right hip Status: Acute Assessment and Plan: - ambulate with assistance and up to chair - hip precautions in place - use IS - neurovasc checks - see order for intervals - SCDs - resume diet -analgesics and antiemetics p.r.n. - monitor labs in AM - CBC and BMP - PT/OT (2) Atrial fib/flutter, transient: Status: Chronic Assessment and Plan: - continue metoprolol ER 12.5 mg daily - Eliquis held, restart on 02/03 at 2.5 mg BID (3) Hypothyroid: Qualifiers: Hypothyroidism type: unspecified Qualified Code(s): E03.9 - Hypothyroidism, unspecified Code(s): E03.9 - Hypothyroidism, unspecified Status: Chronic Assessment and Plan: - continue home medication: Levothyroxine 137 mcg daily (4) HTN (hypertension): Qualifiers: Hypertension type: primary hypertension Qualified Code(s): I10 - Essential (primary) hypertension Code(s): I10 - Essential (primary) hypertension Status: Chronic Assessment and Plan: - chronic, currently 138/87 - continue home medications: Metoprolol ER 12.5 mg daily - monitor (5) Sleep apnea: Qualifiers: Sleep apnea type: unspecified type Qualified Code(s): G47.30 - Sleep apnea, unspecified Code(s): G47.30 - Sleep apnea, unspecified Status: Chronic Assessment and Plan: - continue home CPAP Plan Diet: Regular GI Prophylaxis: Famotidine p.o. DVT Prophylaxis: Restart Eliquis on 02/03, SCDs IV fluids: NS 125 mL/hour Lines/Tubes: Peripheral IV Code Status: Full code HPI Date of Consult Consult date: 02/02/25 Requesting Physician: Damon Rahman MD Primary Care Provider: Zeenat Emanuel, PA Consult Narrative Reason for consult: Medical Management Narrative: 79 y/o F with PMH of atrial fib/flutter, abdominal aortic aneurysm, hypertension, hyperlipidemia, hypothyroidism, bladder cancer s/p cystoscopy and moderate-severe osteoarthritis of the right hip. The patient presents here for surgical management of her moderately severe osteoarthritis of the right hip. MRI performed on 10/15/2024 showed right subchondral bone marrow edema insufficiency fractures of the femoral head. She has been having significant pain and symptoms over the past 6 months. Pain has been limiting her daily activities and she now is required to use a cane on a regular basis. Due to these factors she elected to move forward with surgical management versus conservative treatment. She underwent a right anterior total hip arthroplasty on 02/02. Postoperatively she reports she is feeling fine and denies any significant pain or nausea. Preop VS: 98.6? F, HR 90, RR 16, 148/90, and 99% on RA. Preop workup: No leukocytosis, no anemia, no significant electrolyte derangements, creatinine 0.5 and GFR >60, A1c 5.5%. Review of Systems Review of Systems: All systems reviewed & are unremarkable except as noted in HPI and below PMFSH Past Medical History Medical History Sleep apnea (normal spontaneous vaginal delivery) x2 with hemorrhage each time History of bladder cancer 2004 Hypothyroid Hyperlipidemia HTN (hypertension) AAA (abdominal aortic aneurysm) Atrial fib/flutter, transient Surgical History Surgical History History of cataract extraction with lens replacement History of left hip replacement History of knee surgery bilateral arthroscope 2009 History of laparoscopic adjustable gastric banding 2007 Status post cystoscopy original in 2004 with ongoing surveillance Status post tubal ligation H/O cardiac radiofrequency ablation Family History Family History Father Cerebrovascular accident Social History Social History Smoking packs per day: 1 Smoking cigarettes per day: 20.0 Years smoked: 9 Smoking pack-years: 9.00 Smoking status: Former smoker Tobacco type: cigarettes Smoking end date: 02/10/85 Alcohol intake: never Substance use: never Substance use type: does not use Do You Feel Safe in your Home?: Yes Lack of Transportation: No Lack of Food: Never True Current Housing: I Have Housing Concerned About Future Housing: No Difficulty Paying Gas/Electric Bills: No Difficulty Paying for Meds: No Currently Unemployed: No Education: Associate Degree Difficulty w/ Childcare or Family Care: No Living arrangements: alone Spiritual care concerns: No Meds Home Medications and Allergies Home Medications ?Medication ?Instructions ?Recorded ?Confirmed ?Type apixaban 5 mg tablet (Eliquis) 5 mg PO BID 01/17/23 02/02/25 History omega-3 acid ethyl esters 1 gram 2 cap PO BID 01/17/23 02/02/25 History capsule alendronate 70 mg tablet (Fosamax) 70 mg PO WEEKLY 10/22/24 02/02/25 History cholecalciferol (vitamin D3) 125 125 mcg PO DAILY 10/22/24 02/02/25 History mcg (5,000 unit) capsule ferrous sulfate 27 mg iron tablet 27 mg PO .QOD 10/22/24 02/02/25 History folic acid-vit B6-vit B12 2.5 1 tablet PO DAILY 10/22/24 02/02/25 History mg-25 mg-1 mg tablet inulin 2 gram chewable tablet 2 g PO DAILY 10/22/24 02/02/25 History (Prebiotic Fiber) lactobacillus combination no.9 4 4,000 mmu cells PO DAILY 10/22/24 02/02/25 History billion cell capsule (Adult 50 Plus Probiotic) levothyroxine 150 mcg tablet 137 mcg PO QAM 10/22/24 02/02/25 History magnesium 200 mg tablet 200 mg PO DAILY 10/22/24 02/02/25 History vitamins A,C,K-hogs-sexoul 4,296 1 cap PO BID 10/22/24 02/02/25 History mcg-226 mg-90 mg capsule (PreserVision AREDS) zinc glycinate 20 mg capsule 20 mg PO DAILY 10/22/24 02/02/25 History metoprolol succinate 25 mg capsule 12.5 mg PO DAILY 01/12/25 02/02/25 History sprinkle, ext. release 24 hr tramadol 50 mg tablet 50 mg PO Q6H PRN pain #30 tabs 01/19/25 02/02/25 Rx Allergies Allergy/AdvReac Type Severity Reaction Status Date / Time fluocinolone acetonide (From Allergy Mild Rash Verified 02/02/25 07:43 Synalar) nafarelin (From Synarel) Allergy Mild Rash Verified 02/02/25 07:43 SUNIL Inhibitors AdvReac Cough Verified 02/02/25 07:43 morphine AdvReac REFUSING, Verified 02/02/25 07:43 MOTHER- N/V Taewzge-KTF-TdQ Reductase AdvReac Muscle Pain Verified 02/02/25 07:43 Inhibitor Vital Signs Vital Signs - 24 hr 02/02/25 07:55 02/02/25 11:31 02/02/25 11:45 Temperature 97.3 F L 98.6 F Pulse Rate 60 61 62 Respiratory Rate 16 15 12 Blood Pressure 165/79 H 116/70 133/78 Pulse Oximetry 98 100 99 Oxygen Delivery Room Air Simple Face Mask Simple Face Mask Oxygen Flow Rate 8 8 02/02/25 12:00 02/02/25 12:15 02/02/25 12:30 Temperature Pulse Rate 64 67 66 Respiratory Rate 12 18 18 Blood Pressure 154/81 H 146/85 H 138/87 Pulse Oximetry 99 99 98 Oxygen Delivery Room Air Room Air Room Air Oxygen Flow Rate Exam Const: General: comfortable and no acute distress Other: , female, elderly, nontoxic appearance HENMT: Face/Nose/Sinus: Normal nares present Mouth: Yes moist mucous membranes Eyes: General: appearance normal, both eyes and all related structures Sclera: sclerae normal Pupils: Equal, round and reactive pupils present EOM: EOMs intact bilaterally Resp: Effort & Inspection: normal respiratory effort Auscultation: clear to auscultation bilaterally Cardio: Rate: regular rate Rhythm: regular rhythm Other: S1-S2 present without murmur, rub, ectopy GI: Other: Abdomen soft, nondistended, nontender. Normoactive bowel sounds in all quadrants. Skin: General skin exam: normal color and no rashes or lesions noted Other: Postop incision to right hip with drain in place. Serosanguineous output. No diffuse tenderness with palpation. Neuro: Speech: normal speech Motor exam (neuro): 5/5 motor strength present throughout Sensory Exam: normal sensation Other: A&O x4 Extrem: General: normal to inspection Psych: Mental Status: mental status grossly normal Affect: normal affect Other: Good insight and judgment, pleasant Quality VTE Prophylaxis VTE prophylaxis: mechanical ordered and pharmacologic ordered Hospitalist MIPS Advance Care Plan I have confirmed that the patient's Advanced Care Plan is present, code status is documented, or surrogate decision maker is listed in patient medical record.: Yes Medication Reconciliation I have utilized all available resources to obtain, update and review the patients current medications (includes all prescriptions, OTC, herbals, cannabis, and nutritional supplements).: Yes
[2025-02-02] MEDS: ACETAMINOPHEN 325 MG TABLET 650 MG PO ×3 (13:34→20:45)
--- NOTE | 2025-02-02 14:00 | ADMGEN ---
This patient, Pallavi Baird, was admitted to [address] [place] [address] Room 306-02. Patient/family oriented to hospital policies and general routines including ID bracelet, bed and alarms, visiting hours, pain management, procedures, bathroom and other care routines, personal items, smoking policy, room service/diet, and visiting hours. Information on how to activate the Rapid Response Team has been discussed. Patient/Family are encouraged to report perceived risks to care and to ask questions if they do not understand what they are told or what they should do.
[2025-02-02] MEDS: traMADol HCL (*CRX) 50 MG TABLET PO ×2 (14:24→20:45)
[2025-02-02] MEDS: SENNA/DOCUSATE SODIUM TABLET 2 TAB PO (17:29)
[2025-02-02] MEDS: VANCOMYCIN 1,000 MG/NS 250 ML 1,000 MG/250 ML BAG 250 MG IVPB (18:32)
--- NOTE | 2025-02-02 19:05 | PC.NURSE ---
On 02/02/25, the Graduate Nurse, Precious, provided care and completed [employer] documentation on this patient. I have reviewed the Graduate Nurse's documentation and agree with the findings.
[2025-02-02] MEDS: FAMOTIDINE 20 MG TABLET PO (20:45)
[2025-02-03] MEDS: ACETAMINOPHEN 325 MG TABLET 650 MG PO ×3 (00:03→08:11)
[2025-02-03] MEDS: traMADol HCL (*CRX) 50 MG TABLET PO ×2 (02:12→08:12)
[2025-02-03 03:21] VITALS: BP 97/58; PULSE 75; RESP 16; TEMP 36.2; O2SAT 97
[2025-02-03] MEDS: VANCOMYCIN 1,000 MG/NS 250 ML 1,000 MG/250 ML BAG 250 MG IVPB (05:33)
[2025-02-03] MEDS: LEVOTHYROXINE SODIUM 112 MCG TABLET PO (05:35)
[2025-02-03] MEDS: LEVOTHYROXINE SODIUM 25 MCG TABLET PO (05:35)
[2025-02-03 06:36] LABS: Basophils Percent Auto 0.5 % (0.2-1.2); Eosinophils Percent Auto 0.5 % (0-4.4); Hematocrit 34.2 % (37.0-47.0); Hemoglobin 10.9 g/dL (12.0-15.0); Immature Granulocyte Absolute 0.03 K/mm3 (0.00-0.031); Immature Granulocyte Percent A 0.3 % (0-0.5); Lymphocytes Absolute Auto 1.07 K/mm3 (0.9-3.2); Lymphocytes Percent Auto 12.1 % (18.3-44.2); Mean Corpuscular HGB Conc 31.9 g/dl (32-36); Mean Platelet Volume 9.1 fl (7.4-10.4); Monocytes Absolute Auto 0.8 K/mm3 (0.1-0.6); Monocytes Percent Auto 8.8 % (2.6-8.5); Neutrophils Absolute Auto 6.9 K/mm3 (1.3-6.7); Neutrophils Percent Auto 77.8 % (45.5-73.1); Platelet Count Result 175 k/mm3 (150-375); Red Blood Count 3.76 M/mm3 (4.2-5.4); Red Cell Distribution Width 14.5 % (11.5-14.5); White Blood Count 8.9 K/mm3 (4.5-10.0)
[2025-02-03 06:56] LABS: Anion Gap 3 mmol/L (4-12); Blood Urea Nitrogen 19 mg/dL (7-17); Calcium 8.1 mg/dL (8.4-10.2); Carbon Dioxide 27 mmol/L (22-30); Chloride 102 mmol/L (98-107); Estimated CRCL calculation 74 ml/min; Estimated Glomerular Filt Rate > 60; Glucose 103 mg/dL (65-110); Potassium 3.6 mmol/L (3.4-5.0); Sodium 132 mmol/L (137-145)
--- NOTE | 2025-02-03 07:20 | P.PNOP_ITS ---
Subjective Subjective Date/Time Seen: 02/03/25 07:20 Interval history: Postop day 1 patient is alert. She is afebrile vital signs are stable. Morning labs are noted. Patient was up yesterday with therapy and walking and is very comfortable. Pain overall is very well tolerated. She is using tramadol as well as Tylenol for pain control. She declined oxycodone. She states that it gives her headache. Patient's dressing has been changed and drain is out. Incision looks dry. Neurovascularly she is intact. Overall patient is doing very well and is anxious to go home today. We will have her work with Physical therapy this morning and once IV antibiotics been completed and she continues to be doing well she will be discharged home late this morning Objective Data Vital Signs Vital Signs: Vital Signs - 24 hr 02/02/25 07:55 02/02/25 11:31 02/02/25 11:45 Temperature 97.3 F L 98.6 F Pulse Rate 60 61 62 Respiratory Rate 16 15 12 Blood Pressure 165/79 H 116/70 133/78 Pulse Oximetry 98 100 99 Oxygen Delivery Room Air Simple Face Mask Simple Face Mask Oxygen Flow Rate 8 8 02/02/25 12:00 02/02/25 12:15 02/02/25 12:30 Temperature Pulse Rate 64 67 66 Respiratory Rate 12 18 18 Blood Pressure 154/81 H 146/85 H 138/87 Pulse Oximetry 99 99 98 Oxygen Delivery Room Air Room Air Room Air Oxygen Flow Rate 02/02/25 13:00 02/02/25 13:15 02/02/25 13:45 Temperature 97.3 F L 97.2 F L 97.6 F Pulse Rate 62 59 L 59 L Respiratory Rate 20 20 20 Blood Pressure 138/75 145/84 H 147/75 H Pulse Oximetry 99 98 99 Oxygen Delivery Oxygen Flow Rate 02/02/25 14:10 02/02/25 14:33 02/02/25 14:43 Temperature 97.7 F Pulse Rate 70 Respiratory Rate 18 Blood Pressure 143/85 H Pulse Oximetry 98 Oxygen Delivery Room Air Room Air Oxygen Flow Rate 02/02/25 14:50 02/02/25 18:22 02/02/25 20:47 Temperature 97.8 F 97.2 F L Pulse Rate 72 65 Respiratory Rate 18 16 Blood Pressure 129/79 114/65 Pulse Oximetry 98 97 Oxygen Delivery Room Air Oxygen Flow Rate 02/02/25 23:31 02/03/25 03:21 Temperature 97.4 F L 97.2 F L Pulse Rate 73 75 Respiratory Rate 16 16 Blood Pressure 105/64 97/58 L Pulse Oximetry 97 97 Oxygen Delivery Oxygen Flow Rate Intake/Output Intake/Output: Intake & Output 01/31/25 02/01/25 02/02/25 02/03/25 23:59 23:59 23:59 23:59 Intake Total 1340 1200 Output Total 0 30 Balance 1340 1170 Meds/Results Medications: Active Medications Generic Name Dose Route Start Last Admin Trade Name Freq PRN Reason Stop Dose Admin Acetaminophen 650 mg 02/02/25 13:00 02/03/25 05:34 Acetaminophen 325 Mg Tablet PO 650 mg Q4H LESLIE Administration Apixaban 2.5 mg 02/03/25 09:00 Apixaban 2.5 Mg Tablet PO Q12HR LESLIE Cefdinir 300 mg 02/03/25 12:00 Cefdinir 300 Mg Capsule PO Q12HR LESLIE Celecoxib 100 mg 02/03/25 09:00 Celecoxib 100 Mg Capsule PO DAILY LESLIE Famotidine 20 mg 02/02/25 21:00 02/02/25 20:45 Famotidine 20 Mg Tablet PO 20 mg Q12HR LESLIE Administration Hydromorphone HCl 0.5 mg 02/02/25 12:48 Hydromorphone Hcl Inj (*Crx) 2 Mg/Ml Vial IV PUSH Q2H PRN Breakthrough Pain Rated 4-6 or NPO Cefazolin Sodium 2 gm in 50 mls @ 100 mls/hr 02/02/25 16:00 02/02/25 23:35 Ancef 2 Gm/D5w 50 Ml IVPB 02/03/25 08:29 100 mls/hr Q8H LESLIE Administration Vancomycin HCl 1,000 mg in 250 mls @ 250 mls/hr 02/02/25 19:00 02/03/25 05:33 Vancomycin 1,000 Mg/Ns 250 Ml IVPB 02/03/25 07:59 250 mls/hr Q12H LESLIE Administration Levothyroxine Sodium 112 mcg 02/03/25 06:30 02/03/25 05:35 Levothyroxine Sodium 112 Mcg Tablet PO 112 mcg DAILY@0630 LESLIE Administration Levothyroxine Sodium 25 mcg 02/03/25 06:30 02/03/25 05:35 Levothyroxine Sodium 25 Mcg Tablet PO 25 mcg DAILY@0630 [facility] Administration Metoprolol Succinate 12.5 mg 02/03/25 09:00 Metoprolol Succinate Ext Rel 12.5 Mg Tabcr PO DAILY [facility] Naloxone HCl 0.1 mg 02/02/25 12:37 Naloxone Hcl 0.4 Mg/Ml Vial IV PUSH Q2M PRN Opiate Reversal Ondansetron HCl 4 mg 02/02/25 12:37 Ondansetron Inj 4 Mg/2 Ml Vial IV PUSH Q4H PRN Nausea And Vomiting Polyethylene Glycol 17 gm 02/03/25 09:00 Polyethylene Glycol 3350 17 Gm Powd.Pack PO QAM [facility] Senna/Docusate Sodium 2 tab 02/02/25 17:00 02/02/25 17:29 Senna/Docusate Sodium Tablet PO 2 tab BID LESLIE Administration Tramadol HCl 50 mg 02/02/25 14:00 02/03/25 02:12 Tramadol Hcl (*Crx) 50 Mg Tablet PO 50 mg Q6H [facility] Administration Vitamin B Complex/Folic Acid 1 cap 02/03/25 09:00 Vitamin B Cmplx/Vit C/Folic Ac 1 Capsule PO DAILY [facility] Vitamin D 125 mcg 02/03/25 09:00 Cholecalciferol (Vitamin D3) 125 Mcg (5,000 Units) Tablet PO DAILY [facility] Radiology Results: ITS Impressions Intraoperative X-Ray 02/02/25 11:47 IMPRESSION: 1. Expected appearance during right total hip arthroplasty. See procedure note for further detail. Hip/Pelvis X-Ray 02/02/25 11:49 IMPRESSION: 1. Right total hip arthroplasty, negative for postoperative purposes. Labs Labs: Laboratory Results - last 24 hr 02/02/25 02/03/25 06:48 06:24 WBC 8.9 RBC 3.76 L Hgb 10.9 L Hct 34.2 L MCV 91.0 MCH 29.0 MCHC 31.9 L RDW 14.5 Plt Count 175 MPV 9.1 Immature Gran % (Auto) 0.3 Neut % (Auto) 77.8 H Lymph % (Auto) 12.1 L [place] % (Auto) 8.8 H Eos % (Auto) 0.5 Baso % (Auto) 0.5 Lymph # (Auto) 1.07 [place] # (Auto) 0.8 H Eos # (Auto) 0.0 Baso # (Auto) 0.0 Abs Immat Gran (auto) 0.03 Absolute Neuts (auto) 6.9 H Absolute Nucleated RBC 0.000 Nucleated RBC % 0.0 Sodium 132 L Potassium 3.6 Chloride 102 Carbon Dioxide 27 Anion Gap 3 L BUN 19 H Creatinine 0.63 L Estim Creat Clear Calc 74 Estimated GFR > 60 Glucose 103 Calcium 8.1 L Blood Type A Positive Antibody Screen Negative
[2025-02-03 07:27] VITALS: BP 110/61; PULSE 82; RESP 18; TEMP 35.6; O2SAT 98
[2025-02-03] MEDS: ceFAZolin 2 GM/D5W 50 ML 2 GM/50 ML BAG IVPB (08:10)
[2025-02-03] MEDS: VITAMIN B CMPLX/VIT C/FOLIC AC 1 CAPSULE 1 CAP PO (08:10)
[2025-02-03 08:11] VITALS: PULSE 70
[2025-02-03] MEDS: APIXABAN 2.5 MG TABLET PO (08:11)
[2025-02-03] MEDS: FAMOTIDINE 20 MG TABLET PO (08:11)
[2025-02-03] MEDS: polyethylene glycoL 3350 17 GM POWD.PACK PO (08:11)
[2025-02-03] MEDS: SENNA/DOCUSATE SODIUM TABLET 2 TAB PO (08:11)
[2025-02-03] MEDS: METOPROLOL SUCCINATE EXT REL 12.5 MG TABCR PO (08:11)
[2025-02-03] MEDS: CELECOXIB 100 MG CAPSULE PO (08:12)
[2025-02-03] MEDS: CHOLECALCIFEROL (VITAMIN D3) 125 MCG (5,000 UNITS) TABLET PO (08:12)
[2025-02-03 08:25] LABS: Glucose Point of Care 136 mg/dl (65-105)
[2025-02-03 08:31] VITALS: BP 123/86; BP 127/70; PULSE 82; RESP 18; TEMP 35.6; O2SAT 98
[2025-02-03 10:18] VITALS: BP 100/52; PULSE 66; RESP 18; TEMP 35.9; O2SAT 99
--- NOTE | 2025-02-03 11:02 | PM.PNORT ---
Subjective Subjective Date/Time Seen: 02/03/25 11:02 Interval history: Patient had orthostatic blood pressure taken which showed knows change in systolic pressure. She has been up walking with physical therapy. She has had no symptoms and pressures remained stable. Patient would like to go home today and I think this will be reasonable. She will use a walker for a month. She is weight-bearing as tolerated. Spoke with the patient about going home and restrictions as well. Objective Data Vital Signs Vital Signs: Vital Signs - 24 hr 02/02/25 11:31 02/02/25 11:45 02/02/25 12:00 Temperature 98.6 F Pulse Rate 61 62 64 Respiratory Rate 15 12 12 Blood Pressure 116/70 133/78 154/81 H Pulse Oximetry 100 99 99 Oxygen Delivery Simple Face Mask Simple Face Mask Room Air Oxygen Flow Rate 8 8 02/02/25 12:15 02/02/25 12:30 02/02/25 13:00 Temperature 97.3 F L Pulse Rate 67 66 62 Respiratory Rate 18 18 20 Blood Pressure 146/85 H 138/87 138/75 Pulse Oximetry 99 98 99 Oxygen Delivery Room Air Room Air Oxygen Flow Rate 02/02/25 13:15 02/02/25 13:45 02/02/25 14:10 Temperature 97.2 F L 97.6 F Pulse Rate 59 L 59 L Respiratory Rate 20 20 Blood Pressure 145/84 H 147/75 H Pulse Oximetry 98 99 Oxygen Delivery Room Air Oxygen Flow Rate 02/02/25 14:33 02/02/25 14:43 02/02/25 14:50 Temperature 97.7 F Pulse Rate 70 Respiratory Rate 18 Blood Pressure 143/85 H Pulse Oximetry 98 Oxygen Delivery Room Air Room Air Oxygen Flow Rate 02/02/25 18:22 02/02/25 20:47 02/02/25 23:31 Temperature 97.8 F 97.2 F L 97.4 F L Pulse Rate 72 65 73 Respiratory Rate 18 16 16 Blood Pressure 129/79 114/65 105/64 Pulse Oximetry 98 97 97 Oxygen Delivery Oxygen Flow Rate 02/03/25 03:21 02/03/25 07:27 02/03/25 08:00 Temperature 97.2 F L 96.1 F L Pulse Rate 75 82 Respiratory Rate 16 18 Blood Pressure 97/58 L 110/61 Pulse Oximetry 97 98 Oxygen Delivery Room Air Oxygen Flow Rate 02/03/25 08:11 02/03/25 08:31 02/03/25 08:31 Temperature 96.1 F L 96.1 F L Pulse Rate 70 82 82 Respiratory Rate 18 18 Blood Pressure 123/86 127/70 Pulse Oximetry 98 98 Oxygen Delivery Oxygen Flow Rate 02/03/25 10:18 Temperature 96.6 F L Pulse Rate 66 Respiratory Rate 18 Blood Pressure 100/52 L Pulse Oximetry 99 Oxygen Delivery Oxygen Flow Rate Intake/Output Intake/Output: Intake & Output 01/31/25 02/01/25 02/02/25 02/03/25 23:59 23:59 23:59 23:59 Intake Total 1340 1450 Output Total 0 30 Balance 1340 1420 Meds/Results Medications: Active Medications Generic Name Dose Route Start Last Admin Trade Name Freq PRN Reason Stop Dose Admin Acetaminophen 650 mg 02/02/25 13:00 02/03/25 08:11 Acetaminophen 325 Mg Tablet PO 650 mg Q4H LESLIE Administration Apixaban 2.5 mg 02/03/25 09:00 02/03/25 08:11 Apixaban 2.5 Mg Tablet PO 2.5 mg Q12HR LESLIE Administration Cefdinir 300 mg 02/03/25 12:00 Cefdinir 300 Mg Capsule PO Q12HR LESLIE Celecoxib 100 mg 02/03/25 09:00 02/03/25 08:12 Celecoxib 100 Mg Capsule PO 100 mg DAILY LESLIE Administration Famotidine 20 mg 02/02/25 21:00 02/03/25 08:11 Famotidine 20 Mg Tablet PO 20 mg Q12HR LESLIE Administration Hydromorphone HCl 0.5 mg 02/02/25 12:48 Hydromorphone Hcl Inj (*Crx) 2 Mg/Ml Vial IV PUSH Q2H PRN Breakthrough Pain Rated 4-6 or NPO Levothyroxine Sodium 112 mcg 02/03/25 06:30 02/03/25 05:35 Levothyroxine Sodium 112 Mcg Tablet PO 112 mcg DAILY@0630 LESLIE Administration Levothyroxine Sodium 25 mcg 02/03/25 06:30 02/03/25 05:35 Levothyroxine Sodium 25 Mcg Tablet PO 25 mcg DAILY@0630 LESLIE Administration Metoprolol Succinate 12.5 mg 02/03/25 09:00 02/03/25 08:11 Metoprolol Succinate Ext Rel 12.5 Mg Tabcr PO 12.5 mg DAILY [facility]ESLIE Administration Naloxone HCl 0.1 mg 02/02/25 12:37 Naloxone Hcl 0.4 Mg/Ml Vial IV PUSH Q2M PRN Opiate Reversal Ondansetron HCl 4 mg 02/02/25 12:37 Ondansetron Inj 4 Mg/2 Ml Vial IV PUSH Q4H PRN Nausea And Vomiting Polyethylene Glycol 17 gm 02/03/25 09:00 02/03/25 08:11 Polyethylene Glycol 3350 17 Gm Powd.Pack PO 17 gm QAM LESLIE Administration Senna/Docusate Sodium 2 tab 02/02/25 17:00 02/03/25 08:11 Senna/Docusate Sodium Tablet PO 2 tab BID LESLIE Administration Tramadol HCl 50 mg 02/02/25 14:00 02/03/25 08:12 Tramadol Hcl (*Crx) 50 Mg Tablet PO 50 mg Q6H LESLIE Administration Vitamin B Complex/Folic Acid 1 cap 02/03/25 09:00 02/03/25 08:10 Vitamin B Cmplx/Vit C/Folic Ac 1 Capsule PO 1 cap DAILY LESLIE Administration Vitamin D 125 mcg 02/03/25 09:00 02/03/25 08:12 Cholecalciferol (Vitamin D3) 125 Mcg (5,000 Units) Tablet PO 125 mcg DAILY LESLIE Administration Radiology Results: ITS Impressions Intraoperative X-Ray 02/02/25 11:47 IMPRESSION: 1. Expected appearance during right total hip arthroplasty. See procedure note for further detail. Hip/Pelvis X-Ray 02/02/25 11:49 IMPRESSION: 1. Right total hip arthroplasty, negative for postoperative purposes. Labs Labs: Laboratory Results - last 24 hr 02/03/25 02/03/25 06:24 08:03 WBC 8.9 RBC 3.76 L Hgb 10.9 L Hct 34.2 L MCV 91.0 MCH 29.0 MCHC 31.9 L RDW 14.5 Plt Count 175 MPV 9.1 Immature Gran % (Auto) 0.3 Neut % (Auto) 77.8 H Lymph % (Auto) 12.1 L [place] % (Auto) 8.8 H Eos % (Auto) 0.5 Baso % (Auto) 0.5 Lymph # (Auto) 1.07 [place] # (Auto) 0.8 H Eos # (Auto) 0.0 Baso # (Auto) 0.0 Abs Immat Gran (auto) 0.03 Absolute Neuts (auto) 6.9 H Absolute Nucleated RBC 0.000 Nucleated RBC % 0.0 Sodium 132 L Potassium 3.6 Chloride 102 Carbon Dioxide 27 Anion Gap 3 L BUN 19 H Creatinine 0.63 L Estim Creat Clear Calc 74 Estimated GFR > 60 Glucose 103 POC Capillary Glucose 136 H Calcium 8.1 L
== END 2025-02-03 11:52 | disposition home or self-care (01) ==
LOC: ANHSURGERY 05:59 → ANH3MEDSUR 12:40
PROVIDERS: Physician Assistant Surgical; PCP Physician Assistant; Visit Provider Orthopaedic Surgery
PROC: (CPT 27130; principal; 2025-02-02 07:30)
DX: M16.11 Unilateral primary osteoarthritis, right hip (principal); E78.5 Hyperlipidemia, unspecified; E03.9 Hypothyroidism, unspecified; I10 Essential (primary) hypertension; I48.91 Unspecified atrial fibrillation; I48.92 Unspecified atrial flutter; G47.30 Sleep apnea, unspecified; E66.9 Obesity, unspecified; Z68.34 Body mass index [BMI] 34.0-34.9, adult; Z79.01 Long term (current) use of anticoagulants; Z79.83 Long term (current) use of bisphosphonates; Z79.4 Long term (current) use of insulin; Z79.891 Long term (current) use of opiate analgesic; Z98.890 Other specified postprocedural states; Z96.642 Presence of left artificial hip joint; Z98.84 Bariatric surgery status; Z98.51 Tubal ligation status; Z87.891 Personal history of nicotine dependence; Z85.51 Personal history of malignant neoplasm of bladder; Z86.79 Personal history of other diseases of the circulatory system; Z82.49 Family history of ischemic heart disease and other diseases of the circulatory system
CPT/HCPCS: 27130; 36415; 73501; 80048; 82948; 85025; 86850; 86900; 86901; 97110; 97161; 97165; 97530; 97535; 99199; A9270; C1776; J0171; J0690; J1100; J1885; J2270; J2704; J2795; J3010; J3370; J7120